=== PATIENT | male | born 1995 | race Caucasian/White ===

== ENCOUNTER → 2021-07-13 19:44 | Outpatient (CLI) | payer BC, SELFPAY | PROVIDERS: Visit Provider Nurse Practitioner Family | DX: Z20.822 Contact with and (suspected) exposure to COVID-19 (principal); U07.1 COVID-19 | CPT/HCPCS: U0003 ==

== ENCOUNTER 2021-07-23 16:16 | Emergency (ER) | payer BC, SELFPAY ==
[2021-07-23 17:10] VITALS: BP 128/73; PULSE 65; RESP 24; TEMP 36.7; O2SAT 99; BMI 29.4
[2021-07-23 17:25] VITALS: BP 128/73; PULSE 65; RESP 24; TEMP 36.7; O2SAT 99
--- NOTE | 2021-07-23 17:49 | HMH.EDUTC ---
[facility] [place] Dis[place] Clinical Impression: Encounter for laboratory testing for COVID-19 virus Disposition: Home, Self-Care Condition on Discharge: Good Instructions: DI for COVID-19 (Suspected or Confirmed ), Preventing the Spread of Coronavirus Discharge Instructions Additional Instructions: *Monitor Temp, Over the counter Motrin or Tylenol as directed/as needed Tylenol every 4 hours and Motrin every 6 hours (as long as your family doctor has told you that you can take it) for fever or pain. and straight to ER if unable to lower temp less than 101.0 after medication given Follow up IMMEDIATELY for new or worsening symptoms or no Noticeable improvement over the next 48-72 hours. 911 for difficulty breathing or swallowing You were tested for today for COVID19 your test result should be back in the next 24-48 hours, You was given written instructions for [facility] portal you can see your results there when they come back you may check it often to see if they are done You was given a handout with instructions for Self Quarantine and Self isolation for while you wait on test results and what to do if they are positive If you are positive the Health Dept will be contacting you also Make sure to take your Vitamins Vit. C Vit D and Zinc if you can take them Referrals: Provider,Referral, [Primary Care Provider] - As needed Time of Disposition: 17:50 Medical Decision Making - Zhou Inquiry Pt receiving controlled substance: No Zhou was queried for this patient: No Vital Signs: 07/23/21 17:10 07/23/21 17:25 Temperature 98.1 F 98.1 F Temperature Source Oral Pulse Rate 65 Pulse Rate [Right Brachial] 65 Respiratory Rate 24 24 Blood Pressure 128/73 Blood Pressure [Right Arm] 128/73 Blood Pressure Mean [Right Arm] 91 Blood Pressure Source [Right Arm] Automatic Cuff Blood Pressure Position [Right Arm] Sitting 02 Sat by Pulse Oximetry 99 Oxygen Delivery Method Room Air Orders (Tests/Meds): ORDERS Category Date Time Status Covid-19 Nasal PCR ([facility]) Routine Lab 07/23/21 17:18 Received [facility] [place] HPI - General Stated complaint: Covid test Time Seen by Provider: 07/23/21 17:49 Mode of Arrival: Ambulatory Source of Information: Patient Limitations: No Limitations Description of Symptoms (Recalled from Triage Doc. by RN): COVID TEST. PREVIOUSLY TESTED POSITIVE, NEEDS NEGATIVE TEST TO RETURN TO WORK HEENT Symptoms (Recalled from RN notes): No Resp Symptoms (Recalled from RN notes): No Skin Symptoms (Recalled from RN notes): No MS Symptoms (Recalled from RN notes): No Functional Status (Recalled from RN notes): WNL - History of Present Illness Provider Complaint: Patient states that he was positive for COVID on 07/13 State that work told him he needed to come back in and get tested again before he can return to work and he was hoping for a neg test so he can go back - Related Data Home Medications Medication Instructions Recorded Confirmed No Known Home Medications 07/13/21 07/13/21 Allergies Allergy/AdvReac Type Severity Reaction Status Date / Time No Known Allergies Allergy Verified 07/13/21 17:20 - Worker's Comp Is this a Worker's Comp case?: No [facility] History - Hepatitis A Screen Drug use history?: No High risk sexual behaviors?: No History of sexually transmitted infection?: No Currently employed?: No Childcare worker?: No Do you have indoor plumbing?: Yes Do you have electricity?: Yes Attestation statement:: This patient has been screened for Hepatitis A risk factors. I have reviewed the patient's past medical history: Yes Other Surgeries: Yes: No Previous Surgery - Social History Smoking Status: Never smoker Alcohol Intake: current Alcohol Intake Frequency:: holidays/special occasions only Occupational Status: employed Family Hx:: Non-contributory ROS Obtained: Yes All systems reviewed & no additional complaints, Yes Systems reviewed as appropriate & no additional comp
== END 2021-07-23 17:50 | disposition home or self-care (01) ==
PROVIDERS: Emergency Provider Nurse Practitioner
DX: U07.1 COVID-19 (principal)
CPT/HCPCS: 99202; G0463; U0003

== ENCOUNTER 2022-06-04 16:09 | Emergency (ER) | payer SELFPAY ==
[2022-06-04 16:25] VITALS: BP 133/78; PULSE 66; RESP 18; TEMP 36.9; O2SAT 98; BMI 33.2
[2022-06-04 16:42] VITALS: BP 133/78; PULSE 66; RESP 18; TEMP 36.9; O2SAT 98
--- NOTE | 2022-06-04 16:48 | HMH.EDUTC ---
[facility] – [place] Disposition Clinical Impression: Exposure to COVID-19 virus Disposition: Home, Self-Care Condition on Discharge: Good Instructions: DI for COVID-19 (Suspected or Confirmed ), Preventing the Spread of Coronavirus Discharge Instructions Additional Instructions: Drink plenty of fluids. Follow up with your regular doctor. GO TO THE ER FOR ANY WORSENING SYMPTOMS Quarantine until you know the results of your covid-19 test. Notify your school or workplace of your results and follow their instructions regarding return to work/school. Referrals: Provider,Referral, [Primary Care Provider] - Time of Disposition: 17:03 Medical Decision Making - Medical Records Medical records reviewed: No: I reviewed the patient's medical records. - Zhou Inquiry Pt receiving controlled substance: No Vital Signs: 06/04/22 16:25 06/04/22 16:42 Temperature 98.4 F 98.4 F Temperature Source Oral Pulse Rate 66 Pulse Rate [Right Brachial] 66 Respiratory Rate 18 18 Blood Pressure 133/78 Blood Pressure [Right Arm] 133/78 Blood Pressure Mean [Right Arm] 96 Blood Pressure Source [Right Arm] Automatic Cuff Blood Pressure Position [Right Arm] Sitting 02 Sat by Pulse Oximetry 98 Oxygen Delivery Method Room Air Orders (Tests/Meds): ORDERS Category Date Time Status Covid-19 Nasal PCR ([facility]) Routine Lab 06/04/22 16:26 Received [facility] – [place] HPI - General Stated complaint: covid test Time Seen by Provider: 06/04/22 16:48 Mode of Arrival: Ambulatory Source of Information: Patient Limitations: No Limitations Description of Symptoms (Recalled from Triage Doc. by RN): PATIENT NEEDING COVID TEST TO RETURN TO WORK HEENT Symptoms (Recalled from RN notes): No Resp Symptoms (Recalled from RN notes): No Skin Symptoms (Recalled from RN notes): No MS Symptoms (Recalled from RN notes): No Functional Status (Recalled from RN notes): WNL - History of Present Illness Provider Complaint: His family has been positive for covid-19. He denies any symptoms or having it himself, but he needs a test before he can return to work. - Related Data Home Medications Medication Instructions Recorded Confirmed No Known Home Medications 07/13/21 07/13/21 Allergies Allergy/AdvReac Type Severity Reaction Status Date / Time No Known Allergies Allergy Verified 07/13/21 17:20 - Worker's Comp Is this a Worker's Comp case?: No [facility] History - Hepatitis A Screen Attestation statement:: This patient has been screened for Hepatitis A risk factors. I have reviewed the patient's past medical history: Yes Other Surgeries: Yes: No Previous Surgery - Social History Smoking Status: Never smoker Alcohol Intake: current Alcohol Intake Frequency:: holidays/special occasions only Occupational Status: employed Family Hx:: Non-contributory ROS Obtained: Yes All systems reviewed & no additional complaints - Constitutional Constitutional: Reports system reviewed and no additional complaints, except as docu - Eyes Eyes: Reports system reviewed and no additional complaints, except as docu - ENT Ears, Nose, Mouth, and Throat: Reports system reviewed and no additional complaints, except as docu - Cardiovascular Cardiovascular: Reports system reviewed and no additional complaints, except as docu - Respiratory Respiratory: Reports system reviewed and no additional complaints, except as docu Physical Exam - General General appearance: alert, in no apparent distress - Head Head exam: atraumatic, normocephalic, normal inspection - Eye Eye exam: Present: normal appearance, PERRL, EOMI - ENT ENT exam: Present: normal exam, normal oropharynx, mucous membranes moist, TM's normal bilaterally, normal external ear exam - Neck Neck exam: Present: normal inspection, full ROM, trachea midline. Absent: meningismus, lymphadenopathy - Chest Chest inspection: Present: normal inspection, symmetric chest wall rise. Absen
== END 2022-06-04 16:50 | disposition home or self-care (01) ==
PROVIDERS: Emergency Provider Nurse Practitioner Family
DX: Z20.822 Contact with and (suspected) exposure to COVID-19 (principal)
CPT/HCPCS: 99212; C9803; G0463; U0003; U0005

== ENCOUNTER 2022-06-12 13:22 | Emergency (ER) | payer BC, SELFPAY ==
[2022-06-12 14:00] VITALS: BP 134/79; PULSE 64; RESP 18; TEMP 36.6; O2SAT 98; BMI 28.8
--- NOTE | 2022-06-12 14:43 | HMH.EDUTC ---
[facility] [place]ression: Sinusitis Qualifiers: Sinusitis location: unspecified location Chronicity: unspecified Qualified Code(s): J32.9 - Chronic sinusitis, unspecified Disposition: Home, Self-Care Condition on Discharge: Good Instructions: Sinusitis, DI for Sinusitis, Azithromycin Additional Instructions: *Monitor Temp, Over the counter Motrin or Tylenol as directed/as needed Tylenol every 4 hours and Motrin every 6 hours (as long as your family doctor has told you that you can take it) for fever or pain. and straight to ER if unable to lower temp less than 101.0 after medication givens *Warm fluids like tea with honey may help to soothe the throat and open nasal congestion *Sleep elevated *Humidifier/Vaporizer *Flonase 2 sprays in each nostril daily but be aware that it may take 2-3 days before you notice improvement Take medication as prescribed Follow up IMMEDIATELY for new or worsening symptoms or no Noticeable improvement over the next 48-72 hours. 911 for difficulty breathing or swallowing Prescriptions: Fluticasone Propionate [Flonase 50mcg nasal spray 16gm] 1 spr NS DAILY #1 each Transmission Status: Pending to [facility] methylPREDNISolone [Medrol 4mg tab] 4 mg PO DIRECTED #21 tab Transmission Status: Pending to [facility] Azithromycin [Z-Handy 250mg Tab] 250 mg PO DIRECTED #6 tab Transmission Status: Pending to [facility] Referrals: Provider,Referral, MD [Primary Care Provider] - As needed Forms: Work/School Release Time of Disposition: 14:51 Medical Decision Making - Zhou Inquiry Pt receiving controlled substance: No Zhou was queried for this patient: No Vital Signs: 06/12/22 14:00 Temperature 97.8 F Temperature Source Oral Pulse Rate [Right Brachial] 64 Respiratory Rate 18 Blood Pressure [Right Arm] 134/79 Blood Pressure Mean [Right Arm] 97 Blood Pressure Source [Right Arm] Automatic Cuff Blood Pressure Position [Right Arm] Sitting 02 Sat by Pulse Oximetry 98 Oxygen Delivery Method Room Air [facility] [place] - General Stated complaint: sinus pressure/drainage, sore throat Time Seen by Provider: 06/12/22 14:43 Mode of Arrival: Ambulatory Source of Information: Patient Limitations: No Limitations Description of Symptoms (Recalled from Triage Doc. by RN): PATIENT C/O SINUS PRESSURE AND DRAINAGE X 3 DAYS HEENT Symptoms (Recalled from RN notes): Yes Resp Symptoms (Recalled from RN notes): No Skin Symptoms (Recalled from RN notes): No MS Symptoms (Recalled from RN notes): No Functional Status (Recalled from RN notes): WNL - History of Present Illness Provider Complaint: Patient states that he gets a bad sinus infection about this time every year States that he has been having sinus pain and pressure on and off for over a week that has got worse in the last 3 days State that today he had a little sinus headache so he came in to get checked - Related Data Previous Rx's Medication Instructions Recorded Azithromycin [Z-Handy 250mg Tab] 250 mg PO DIRECTED #6 tab 06/12/22 Fluticasone Propionate [Flonase 1 spr NS DAILY #1 each 06/12/22 50mcg nasal spray 16gm] methylPREDNISolone [Medrol 4mg 4 mg PO DIRECTED #21 tab 06/12/22 tab] Allergies Allergy/AdvReac Type Severity Reaction Status Date / Time No Known Allergies Allergy Verified 07/13/21 17:20 - Worker's Comp Is this a Worker's Comp case?: No [facility] History - Hepatitis A Screen Attestation statement:: This patient has been screened for Hepatitis A risk factors. I have reviewed the patient's past medical history: Yes Other Surgeries: Yes: No Previous Surgery - Social History Smoking Status: Never smoker Alcohol Intake: never Alcohol Intake Frequency:: holidays/special occasions only Occupational Status: other Family Hx:: Non-contributory ROS Obtained: Yes All systems reviewed & no additional complaints, Yes Systems reviewed as appropriate & no additio
[2022-06-12 14:54] VITALS: BP 134/79; PULSE 64; RESP 18; TEMP 36.6; O2SAT 98
== END 2022-06-12 14:57 | disposition home or self-care (01) ==
PROVIDERS: Emergency Provider Nurse Practitioner
DX: J32.9 Chronic sinusitis, unspecified (principal)
CPT/HCPCS: 99212; G0463

== ENCOUNTER 2022-06-13 23:31 | Emergency (ER) | payer SELFPAY ==
[2022-06-13 23:46] VITALS: BP 145/85; RESP 16; TEMP 36.8; O2SAT 99; BMI 29.1
[2022-06-13 23:52] VITALS: BP 103/80; PULSE 73; RESP 16; O2SAT 98
[2022-06-14 00:06] LABS: Chloride 108 mmol/L (98-107)
[2022-06-14 00:07] LABS: Potassium 3.7 mmoL/L (3.5-5.1); Sodium 140 mmol/L (136-145)
[2022-06-14 00:09] LABS: Alanine Aminotransferase 68 U/L (12-78); Anion Gap 10.7 mEq/L (5-15); Aspartate Amino Transferase 47 U/L (17-59); Blood Urea Nitrogen 11 mg/dl (9-20); Carbon Dioxide 25 mmol/L (22.0-30.0); Creatinine Clearance Estimated 196 mL/min (50-200); Estimated Glomerular Filt Rate 119 ml/min (>60); GFR (African American) 144 ML/MIN (>60)
[2022-06-14 00:10] LABS: Alkaline Phosphatase 70 U/L (38-126); Bilirubin,Total 0.4 mg/dl (0.2-1.3); Calcium 9.5 mg/dl (8.4-10.2); Glucose 128 mg/dl (74-100)
[2022-06-14 00:11] LABS: Albumin Level 4.4 g/dl (3.5-5.0); Albumin/Globulin Ratio 1.7 (1.1-1.8); Globulin 2.6 g/dL (1.3-3.2)
[2022-06-14 00:12] LABS: Basophils # 0.1 K/mm3 (0-0.2); Basophils % 0.6 % (0.1-2.0); Eosinophils # 0.3 K/mm3 (0.0-0.4); Eosinophils % 2.4 % (0.1-12.0); Hemoglobin 14.5 g/dL (14.1-18.0); Lymphocytes # 3.8 K/mm3 (0.7-4.5); Mean Corpuscular HGB Conc 34.5 g/dL (31.8-35.4); Mean Corpuscular Hemoglobin 28.5 pg (27.0-31.2); Mean Corpuscular Volume 82.7 fl (80-94); Mean Platelet Volume 7.3 fl (7.4-10.4); Monocytes # 0.6 K/mm3 (0.1-1.0); Monocytes % 5.1 % (1.7-9.3); Neutrophils # 6.5 K/mm3 (1.8-7.8); Platelet Count 325 K/mm3 (142-424); Red Blood Count 5.08 M/mm3 (4.60-6.20); Red Cell Distribution Width 12.5 % (11.5-17.5); White Blood Count 11.2 K/mm3 (4.8-10.8)
[2022-06-14 00:15] LABS: C-Reactive Protein 0.7 mg/L (0-4)
--- NOTE | 2022-06-14 00:16 | PC.NURSE ---
ALERT, ORIENTED, SKIN WARM AND DRY. RESP EVEN AND LABORED. PATIENT PLAYING ON PHONE. FAMILY MEMBER AT BEDSIDE. C/O BEING DROWSY.
--- NOTE | 2022-06-14 00:22 | HMH.EDALLER ---
ED Disposition Clinical Impression: Adverse effects of medication Qualifiers: Encounter type: initial encounter Qualified Code(s): T50.905A - Adverse effect of unspecified drugs, medicaments and biological substances, initial encounter Disposition: Home, Self-Care Condition on Discharge: Good Instructions: DI for Adverse Drug Reaction -- Allergic Additional Instructions: see pcp and dr mills for follow up Referrals: Provider,Referral, [Primary Care Provider] - Devonte Mills [Referring] - - Critical Care Critical Care Time: No Attestation: On 06/13/22, the high probability of a clinically significant, sudden or life threatening deterioration of the following system(s) required my full and direct attention, intervention and personal management. The time I documented below is in addition to time spent performing reported procedures but includes the following listed in this critical care notation. Medical Decision Making - Medical Records Medical records reviewed: Yes: I reviewed the patient's medical records. - Zhou Inquiry Pt receiving controlled substance: No Vital Signs: 06/13/22 23:46 06/13/22 23:52 Temperature 98.2 F Temperature Source Oral Pulse Rate 73 Respiratory Rate 16 16 Blood Pressure 103/80 L Blood Pressure [Right Arm] 145/85 H Blood Pressure Mean [Right Arm] 105 Blood Pressure Source Automatic Cuff Blood Pressure Source [Right Arm] Manual Cuff/ Doppler Blood Pressure Position Sitting Blood Pressure Position [Right Arm] Sitting 02 Sat by Pulse Oximetry 99 98 Oxygen Delivery Method Room Air Room Air - Lab Data Lab results reviewed: Yes: I reviewed the patient's lab results. Lab Results 06/13/22 23:15: WBC 11.2 H, RBC 5.08, Hgb 14.5, Hct 42.0, MCV 82.7, MCH 28.5, MCHC 34.5, RDW 12.5, Plt Count 325, MPV 7.3 L, Neut % (Auto) 58.0, Lymph % (Auto) 34.0, [place] % (Auto) 5.1, Eos % (Auto) 2.4, Baso % (Auto) 0.6, Neut # (Auto) 6.5, Lymph # (Auto) 3.8, [place] # (Auto) 0.6, Eos # (Auto) 0.3, Baso # (Auto) 0.1 06/13/22 23:15: Sodium 140, Potassium 3.7, Chloride 108 H, Carbon Dioxide 25, Anion Gap 10.7, BUN 11, Creatinine 0.80, Estimated Creat Clear 196, Estimated GFR 119, Est GFR ( Amer) 144, Glucose 128 H, Calcium 9.5, Total Bilirubin 0.4, AST 47, ALT 68, Alkaline Phosphatase 70, C-Reactive Protein 0.7, Total Protein 7.0, Albumin 4.4, Globulin 2.6, Albumin/Globulin Ratio 1.7 Result diagrams: 06/13/22 23:15 06/13/22 23:15 Orders (Tests/Meds): ED MEDICATIONS Generic Name Dose Route Start Last Admin Trade Name Freq PRN Reason Stop Dose Admin Sodium Chloride 1,000 mls @ 999 mls/hr 06/13/22 23:45 06/13/22 23:58 Sod Chlor 0.9% 1000ml Bag IV 06/14/22 00:45 999 mls/hr .Q1H1M DEJA Administration ORDERS Category Date Time Status Complete Blood Count Auto Diff Stat Lab 06/13/22 23:15 Results Diarrhea 6-11 Panel, Cdiff PCR Stat Lab 06/13/22 23:55 Ordered Erythrocyte Sedimentation Rate Stat Lab 06/13/22 23:15 Results Procalcitonin Stat Lab 06/13/22 23:15 Received UA [Urinalysis and Microscopic] Stat Lab 06/13/22 23:57 Ordered Medical Decision Narrative: had unusual reaction to med willhold meds at this time and refer to dr mills Allergic React/Insect Bite HPI - General Chief complaint: Nausea/Vomiting/Diarrhea Stated complaint: possible reaction to medication;tremors;slurred sp Time Seen by Provider: 06/14/22 00:22 Mode of Arrival - ED Triage: Ambulatory Source of Information: Patient, Medical Record Limitations: No Limitations - History of Present Illness HPI narrative: about 1 hr after taking first dose of z pk had acute sx - no def hives and no throat sx - has allergies MD complaint: allergic reaction Onset (ago): hour(s) Exposure: medication Symptoms: dizziness, other (mm spasm ) Treatment prior to arrival: none Allergies/Adverse Reactions: Allergies Allergy/AdvReac Type Severity Reaction Status Date / Time No Known Allergies Al
[2022-06-14 00:39] VITALS: BP 118/62; PULSE 87; RESP 19; TEMP 36.8; O2SAT 98
[2022-06-14 00:47] LABS: Erythrocyte Sedimentation Rate 6 mm/hr (0-15)
[2022-06-14 03:09] LABS: Procalcitonin 0.039 ng/mL (0.0-2.0)
== END 2022-06-14 00:47 | disposition home or self-care (01) ==
PROVIDERS: Emergency Provider Emergency Medicine
DX: R47.81 Slurred speech (principal); T36.95XA Adverse effect of unspecified systemic antibiotic, initial encounter; R11.2 Nausea with vomiting, unspecified; R19.7 Diarrhea, unspecified; R25.1 Tremor, unspecified; Z79.51 Long term (current) use of inhaled steroids; Z79.52 Long term (current) use of systemic steroids
CPT/HCPCS: 80053; 84145; 85025; 85651; 86140; 96360; 99284

== ENCOUNTER 2023-05-08 21:22 | Emergency (ER) | payer OTHER, SELFPAY ==
[2023-05-08 21:23] VITALS: BP 152/82; PULSE 66; RESP 18; TEMP 36.8; O2SAT 98; BMI 31.1
[2023-05-08 21:30] VITALS: BP 147/79; PULSE 60; O2SAT 96
--- NOTE | 2023-05-08 21:47 | HMH.EDDENT ---
Discharge Plan Disposition Patient Disposition: Home, Self-Care Prescriptions Prescriptions: New cephalexin [cephalexin] 500 mg capsule 500 mg PO TID Qty: 30 0RF ketorolac 10 mg tablet 10 mg PO Q8H PRN (Reason: pain) 3 Days Qty: 10 0RF Referrals Follow up/Referrals: Provider,Referral, [Primary Care Provider] - See instructions Clinical Impressions Clinical Impression: Dental infection, Pain, dental Instructions Patient Instructions: DI for Dental Pain Discharge ED Provider: Narayan (ED)[facility] HPI General Chief complaint: Dental/Oral Stated complaint: right side jaw pain Time Seen by Provider: 05/08/23 21:30 Mode of Arrival: Ambulatory Source of Information: Patient and Medical Record Limitations: No Limitations Description of Symptoms (Recalled from ER Triage Doc. by RN): 27 M presents with a right lower jaw dental infection. He has been dealing with this for 6 months. He reports severe pain, and now swelling. Airway intact. Denies fever or chills. History of Present Illness HPI Narrative: pt with rt sided dental pain and infection - pt has had same issues in past - MD Complaint: tooth pain Onset (ago): day(s) Duration: constant Severity: moderate Context: history of dental caries Related Data Previous Rx's Medication Instructions Recorded cephalexin 500 mg capsule 500 mg PO TID #30 caps 05/08/23 ketorolac 10 mg tablet 10 mg PO Q8H PRN pain 3 days #10 05/08/23 tabs Allergies Allergy/AdvReac Type Severity Reaction Status Date / Time No Known Allergies Allergy Verified 12/01/22 10:59 [facility] Disclaimer: The information contained in this section may have been updated after the patient was seen, as this information can be updated by other users. Medical History (Updated 05/08/23 @ 21:54 by Trevon Busch (ED)MD) No significant past medical history Surgical History (Updated 05/08/23 @ 21:29 by Rk García RN) No history of previous surgery Family History (Updated 05/08/23 @ 21:29 by Rk García RN) Other No significant family history Social History Smoking Status: Never smoker alcohol intake: never current occupational status: other Travel in the last 8 weeks: None ROS Obtained: Yes All systems reviewed & no additional complaints except as documented Physical Exam General General appearance: alert Head Head exam: normocephalic Eye Eye exam: Present PERRL and EOMI ENT ENT exam: Present mucous membranes moist Expanded ENT Exam Teeth exam: Present dental caries and gingival swelling Teeth numbered Image: 1. Neck Neck exam: Present trachea midline; Absent meningismus Respiratory Respiratory exam: Absent respiratory distress Cardiovascular Cardiovascular exam: Present regular rate Abdominal Exam Abdominal exam: Present soft Extremities Exam Extremities exam: Present full ROM Neurological Exam Neurological exam: Present alert, oriented X3 and CN II-XII intact; Absent motor sensory deficit Psychiatric Psychiatric exam: Present normal affect Skin Skin exam: Absent rash Lymphatic Lymphatic Findings: other (rt submandibular ) Medical Decision Making Medical Records Medical records reviewed: Yes I reviewed the patient's medical records. Zhou Inquiry Pt receiving controlled substance: No Vital Signs: 05/08/23 21:23 05/08/23 21:30 Temperature 98.2 F Temperature Source Oral Pulse Rate 60 Pulse Rate [Left] 66 Respiratory Rate 18 Blood Pressure 147/79 H Blood Pressure [Right Arm] 152/82 H Blood Pressure Mean [Right Arm] 105 Blood Pressure Source [Right Arm] Automatic Cuff Blood Pressure Position [Right Arm] Sitting 02 Sat by Pulse Oximetry 98 96 Oxygen Delivery Method Room Air Orders (Tests/Meds): ED MEDICATIONS Discontinued Medications Generic Name Dose Route Start Last Admin Trade Name Freq PRN Reason Stop Dose Admin
[2023-05-08 22:07] VITALS: BP 140/72; PULSE 68; RESP 18; TEMP 36.8; O2SAT 98
== END 2023-05-08 22:08 | disposition home or self-care (01) ==
PROVIDERS: Emergency Provider Emergency Medicine
DX: R68.84 Jaw pain (principal); R22.0 Localized swelling, mass and lump, head; K04.7 Periapical abscess without sinus
CPT/HCPCS: 96372; 99283; 99284

== ENCOUNTER 2023-06-12 18:49 | Emergency (ER) | payer OTHER, SELFPAY ==
[2023-06-12 18:49] VITALS: BP 142/79; PULSE 60; RESP 18; TEMP 36.7; O2SAT 97; BMI 32.5
--- NOTE | 2023-06-12 19:16 | EXP.UTC ---
Discharge Plan Disposition Patient Disposition: Home, Self-Care Condition: Good Prescriptions Prescriptions: New ibuprofen [IBU] 800 mg tablet 800 mg PO Q8HP PRN (Reason: Moderate Pain) Qty: 30 0RF amoxicillin-pot clavulanate 875-125 mg Tablet 1 tab PO Q12H Qty: 20 0RF No Action cephalexin [cephalexin] 500 mg capsule 500 mg PO TID Qty: 30 0RF ketorolac 10 mg tablet 10 mg PO Q8H PRN (Reason: pain) 3 Days Qty: 10 0RF Referrals Follow up/Referrals: Provider,Referral, MD [Primary Care Provider] - See instructions Activity Restrictions/Add. Instructions Additional Instructions/Restrictions: Take the medications as directed. Follow up with a dentist as soon as you can get in. Follow up with your regular doctor. GO TO THE ER FOR ANY WORSENING SYMPTOMS Clinical Impressions Clinical Impression: Dental abscess Instructions Patient Instructions: Tooth Abscess, DI for Tooth Abscess, Ceftriaxone Injection Discharge ED Provider: Elbert Urbina [facility] General Stated complaint: dental pain Mode of Arrival: Ambulatory Source of Information: Patient Limitations: No Limitations Time Seen by Provider: 06/12/23 19:12 Description of Symptoms (Recalled from Triage Doc. by RN): Patient reports right lower tooth pain for 7-8 days. States he thinks it may be infected. HEENT Symptoms (Recalled from RN notes): Yes Resp Symptoms (Recalled from RN notes): No Skin Symptoms (Recalled from RN notes): No MS Symptoms (Recalled from RN notes): No Functional Status (Recalled from RN notes): wnl History of Present Illness Provider Complaint: He states that for the past 3 days he has had right upper jaw dental pain. He has a decayed tooth in that area that has abscessed before. He has an appointment with his dentist coming up, but he is here to get antibiotics. Related Data Previous Rx's Medication Instructions Recorded cephalexin 500 mg capsule 500 mg PO TID #30 caps 05/08/23 ketorolac 10 mg tablet 10 mg PO Q8H PRN pain 3 days #10 05/08/23 tabs amoxicillin 875 mg-potassium 1 tab PO Q12H #20 tabs 06/12/23 clavulanate 125 mg tablet ibuprofen 800 mg tablet (IBU) 800 mg PO Q8HP PRN Moderate Pain 06/12/23 #30 tabs Allergies Allergy/AdvReac Type Severity Reaction Status Date / Time No Known Allergies Allergy Verified 12/01/22 10:59 Worker's Comp Is this a Worker's Comp case?: No [facility] Disclaimer: The information contained in this section may have been updated after the patient was seen, as this information can be updated by other users. Medical History No significant past medical history Surgical History No history of previous surgery Family History Other No significant family history Social History Smoking Status: Never smoker alcohol intake: never current occupational status: other Travel in the last 8 weeks: None ROS Obtained: Yes All systems reviewed & no additional complaints except as documented Constitutional Constitutional: Denies chills and Denies fever(s) Eyes Eyes: Denies eye discharge ENT Ears, Nose, Mouth, and Throat: Denies dizziness, Denies otalgia and Denies sore throat Cardiovascular Cardiovascular: Denies chest pain Respiratory Respiratory: Denies shortness of breath, Denies chest congestion, Denies cough, Denies stridor and Denies wheezing Gastrointestinal Gastrointestingal: Denies nausea or vomiting Musculoskeletal Musculoskeletal: Reports system reviewed and no additional complaints, except as documented and Denies arthralgias Integumentary/Breasts Skin/Breast: Denies rash Neurologic Neurologic: Denies dizziness and Denies paresthesias Allergic/Immunologic Allergic/Immunologic: Denies wheezing Physical Exam General General appearance:
[2023-06-12 19:56] VITALS: BP 142/79; PULSE 60; RESP 18; TEMP 36.7; O2SAT 97
== END 2023-06-12 19:57 | disposition home or self-care (01) ==
PROVIDERS: Emergency Provider Nurse Practitioner Family
DX: K04.7 Periapical abscess without sinus (principal)
CPT/HCPCS: 96372; 99212; 99214; G0463; J0696

== ENCOUNTER 2023-11-05 22:10 | Emergency (ER) | payer OTHER, SELFPAY ==
[2023-11-05 22:39] VITALS: BP 117/70; PULSE 89; RESP 15; TEMP 36.7; O2SAT 96; BMI 29.8
--- NOTE | 2023-11-05 23:08 | HMH.EDGENADL ---
Discharge Plan Disposition Patient Disposition: Home, Self-Care Prescriptions Prescriptions: New amoxicillin-pot clavulanate 875-125 mg tablet 1 tab PO BID 7 Days Qty: 14 0RF No Action cephalexin [cephalexin] 500 mg capsule 500 mg PO TID Qty: 30 0RF ketorolac 10 mg tablet 10 mg PO Q8H PRN (Reason: pain) 3 Days Qty: 10 0RF ibuprofen [IBU] 800 mg tablet 800 mg PO Q8HP PRN (Reason: Moderate Pain) Qty: 30 0RF amoxicillin-pot clavulanate 875-125 mg Tablet 1 tab PO Q12H Qty: 20 0RF Referrals Follow up/Referrals: Provider,Referral, MD [Primary Care Provider] - See instructions Activity Restrictions/Add. Instructions Additional Instructions/Restrictions: Please follow-up with a dentist as soon as possible. Please return to the emergency department if you develop any new or worsening symptoms or become concerned for your health. Please take antibiotics as prescribed. Clinical Impressions Clinical Impression: Dental infection Discharge ED Provider: Felix Mcclure General Adult HPI General Chief complaint: Dental/Oral Stated complaint: dental pain Time Seen by Provider: 11/05/23 22:31 Mode of Arrival: Family Vehicle Source of Information: Patient Limitations: No Limitations Description of Symptoms (Recalled from ER Triage Doc. by RN): 28 yo male presents with a CC of right upper jaw pain. States he has a wisdom tooth that is bothering him and when the pain started around 1800, he took ibuprofen 800mg and had no relief. History of Present Illness HPI narrative: 28-year-old male, history of previous dental infection presents with right maxillary molar tooth pain. Reports symptoms been ongoing for at least the last day. He reports that he had similar pain in another tooth and had to be taken out. Denies any fevers at home. Related Data Previous Rx's Medication Instructions Recorded cephalexin 500 mg capsule 500 mg PO TID #30 caps 05/08/23 ketorolac 10 mg tablet 10 mg PO Q8H PRN pain 3 days #10 05/08/23 tabs amoxicillin 875 mg-potassium 1 tab PO Q12H #20 tabs 06/12/23 clavulanate 125 mg tablet ibuprofen 800 mg tablet (IBU) 800 mg PO Q8HP PRN Moderate Pain 06/12/23 #30 tabs amoxicillin 875 mg-potassium 1 tab PO BID 7 days #14 tabs 11/05/23 clavulanate 125 mg tablet Allergies Allergy/AdvReac Type Severity Reaction Status Date / Time No Known Allergies Allergy Verified 12/01/22 10:59 [facility] Disclaimer: The information contained in this section may have been updated after the patient was seen, as this information can be updated by other users. Medical History No significant past medical history Surgical History No history of previous surgery Family History Other No significant family history Social History Smoking Status: Unknown if ever smoked alcohol intake: never current occupational status: other Travel in the last 8 weeks: None ROS Obtained: Yes All systems reviewed & no additional complaints except as documented Physical Exam General General appearance: alert and in no apparent distress Head Head exam: atraumatic and normocephalic Eye Eye exam: Present normal appearance, PERRL and EOMI ENT ENT exam: Present normal oropharynx, normal external ear exam and other (Right posterior most maxillary molar is black, mild surrounding erythema, no fluctuance noted) Neck Neck exam: Present normal inspection and full ROM Chest Chest inspection: Present normal inspection and symmetric chest wall rise; Absent tenderness Respiratory Respiratory exam: Present normal lung sounds bilaterally; Absent respiratory distress Cardiovascular Cardiovascular exam: Present regular rate and normal rhythm Abdominal Exam Abdominal exam: Present soft; Absent distention, te
[2023-11-05 23:20] VITALS: BP 129/68; PULSE 86; RESP 16; TEMP 36.8; O2SAT 97
== END 2023-11-05 23:28 | disposition home or self-care (01) ==
PROVIDERS: Emergency Provider Emergency Medicine
DX: R68.84 Jaw pain (principal)
CPT/HCPCS: 99283

== ENCOUNTER 2024-01-10 11:09 | Emergency (ER) | payer OTHER, SELFPAY ==
[2024-01-10 11:11] VITALS: BP 153/90; PULSE 80; RESP 18; TEMP 37.1; O2SAT 97; BMI 29.8
[2024-01-10 11:31] VITALS: BP 153/77; PULSE 78; O2SAT 98
[2024-01-10 12:00] VITALS: BP 142/87; PULSE 61; O2SAT 96
[2024-01-10] MEDS: BUTALB/ACETAMINOPHEN/CAFFEINE 50MG/325MG/40MG TAB 2 EACH PO (12:02)
--- NOTE | 2024-01-10 12:04 | ED_ITS ---
Discharge Plan Disposition Patient Disposition: Home, Self-Care Condition: Good Prescriptions Prescriptions: No Action cephalexin [cephalexin] 500 mg capsule 500 mg PO TID Qty: 30 0RF ketorolac 10 mg tablet 10 mg PO Q8H PRN (Reason: pain) 3 Days Qty: 10 0RF ibuprofen [IBU] 800 mg tablet 800 mg PO Q8HP PRN (Reason: Moderate Pain) Qty: 30 0RF amoxicillin-pot clavulanate 875-125 mg Tablet 1 tab PO Q12H Qty: 20 0RF amoxicillin-pot clavulanate 875-125 mg tablet 1 tab PO BID 7 Days Qty: 14 0RF Referrals Follow up/Referrals: Isaiah Corrales DO [Staff Physician] - See instructions Provider,Referral, [Primary Care Provider] - See instructions Activity Restrictions/Add. Instructions Additional Instructions/Restrictions: You were evaluated in the emergency department today. Please follow-up closely with your primary care provider. We are providing you with information for Dr. Corrales if you do not have one. We feel that your symptoms were most likely related to a migraine. If your symptoms recur or you have any worsening vision loss, new numbness or tingling, new weakness, or other concerns, please return to the emergency department. 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 by RN): Patient reports he was sitting at work and noticed vision changes in right eye. States he started by seeing a white light in his right eye and noticed his peripheral vision was fuzzy. Patient denies any pain or history of these episodes before. History of Present Illness HPI narrative: This patient is a 28-year-old male who denies significant past medical history presenting to the emergency department for evaluation with concern for visual aura. Patient states that when he was sitting at work, he noticed a white spot in the center of his right eye. He states that the white light resolved, however he now sees a fuzzy white aura in his peripheral vision of his right eye. He is never spacing of this in the past. He also notes that he feels brain fog. He denies any history of migraines or other issues. He denies any facial droop, numbness, tingling, weakness, severe headache, or other concerns. No trauma. His symptoms are actually improving at this time. Related Data Previous Rx's Medication Instructions Recorded cephalexin 500 mg capsule 500 mg PO TID #30 caps 05/08/23 ketorolac 10 mg tablet 10 mg PO Q8H PRN pain 3 days #10 05/08/23 tabs amoxicillin 875 mg-potassium 1 tab PO Q12H #20 tabs 06/12/23 clavulanate 125 mg tablet ibuprofen 800 mg tablet (IBU) 800 mg PO Q8HP PRN Moderate Pain 06/12/23 #30 tabs amoxicillin 875 mg-potassium 1 tab PO BID 7 days #14 tabs 11/05/23 clavulanate 125 mg tablet Allergies Allergy/AdvReac Type Severity Reaction Status Date / Time No Known Allergies Allergy Verified 12/01/22 10:59 [facility] Disclaimer: The information contained in this section may have been updated after the patient was seen, as this information can be updated by other users. Medical History No significant past medical history Surgical History No history of previous surgery Family History Other No significant family history Social History Smoking Status: Never smoker alcohol intake: never current occupational status: other Travel in the last 8 weeks: None ROS Obtained: Yes All systems reviewed & no additional complaints except as documented Physical Exam General General appearance: alert and in no apparent distress Head Head exam: atraumatic and normocephalic Eye Eye exam: Present normal appearance, PERRL and EOMI; Absent scleral icterus, conjunctival redness, conjunctival injection, discharge, nystagmus, periorbital swelling or periorbital tenderness ENT ENT exam: Present normal exam, normal oropharynx, mucous membranes moist and normal external ear exam Neck Neck exam: Present normal inspection, full ROM and trachea midline; Absent tenderness Chest Chest inspection: Present normal inspection and symmetric chest wall rise; Absent tenderness Respiratory Respiratory exam: Present normal lung sounds bilaterally; Absent respiratory distress, wheezes, stridor or accessory muscle use Cardiovascular Cardiovascular exam: Present regular rate and normal rhythm Abdominal Exam Abdominal exam: Present soft; Absent distention, tenderness or guarding Extremities Exam Extremities exam: Present normal inspection, full ROM and normal capillary refill; Absent tenderness or edema Back Exam Back exam: Present normal inspection and full ROM; Absent tenderness Neurological Exam Neurological exam: Present alert, oriented X3, CN II-XII intact and normal gait; Absent motor sensory deficit Psychiatric Psychiatric exam: Present normal affect and normal mood Skin Skin exam: Present warm and dry Medical Decision Making Medical Records Medical records reviewed: Yes I reviewed the patient's medical records. Zhou Inquiry Pt receiving controlled substance: No Vital Signs: 01/10/24 11:11 01/10/24 11:31 01/10/24 12:00 Temperature 98.7 F Temperature Source Oral Pulse Rate 78 61 Pulse Rate [Right] 80 Respiratory Rate 18 Blood Pressure 153/77 H 142/87 H Blood Pressure [Right Arm] 153/90 H Blood Pressure Mean [Right Arm] 111 Blood Pressure Source [Right Arm] Automatic Cuff 02 Sat by Pulse Oximetry 97 98 96 Oxygen Delivery Method Room Air Room Air Room Air 01/10/24 12:53 Temperature 98.7 F Temperature Source Oral Pulse Rate 64 Pulse Rate [Right] Respiratory Rate 16 Blood Pressure 133/88 Blood Pressure [Right Arm] Blood Pressure Mean [Right Arm] Blood Pressure Source [Right Arm] 02 Sat by Pulse Oximetry Oxygen Delivery Method Lab Data Lab results reviewed: Yes I reviewed the patient's lab results. Orders (Tests/Meds): ED MEDICATIONS Discontinued Medications Generic Name Dose Route Start Last Admin Trade Name Freq PRN Reason Stop Dose Admin Acetaminophen/Butalbital/Caffeine 2 each 01/10/24 11:47 01/10/24 12:02 Butalb/Acetaminophen/Caffeine 50mg/325mg/40mg Tab PO 01/10/24 11:48 2 each ONCE ONE Administration ORDERS Category Date Time Status POC Glucose,Bedside Stat Lab 01/10/24 12:36 Ordered Medical Decision Narrative: In summary, this patient is a 28-year-old male presenting to the Emergency Department for evaluation of visual aura. Differential diagnoses considered include but are not limited to migraine with aura, intracranial mass/hemorrhage or other abnormality, CVA, other stroke mimic. Ruling out the most morbid conditions drove assessment. On exam, the patient is completely neurologically intact with a normal ocular exam. I had a discussion with the patient regarding obtaining a potential CT scan of the head without contrast to further evaluate, however given his reassuring neurologic exam and the explanation of symptoms, feel he likely has a migraine with aura. Patient states that he does not want to proceed with CT scan, as he does not feel that it is indicated either. He was given Fioricet. On reassessment, he is resting comfortably with no symptoms. He is feeling much better. He is neurologically intact. Given this, I do feel that he is appropriate for discharge with diagnosis of likely migraine with aura. He was given instructions for close patient follow-up, strict return precautions, and he was discharged in stable condition after all questions were answered Critical Care Critical Care Time Critical Care Time: No
[2024-01-10 12:53] VITALS: BP 133/88; PULSE 64; RESP 16; TEMP 37.1
== END 2024-01-10 12:56 | disposition home or self-care (01) ==
PROVIDERS: Emergency Provider Emergency Medicine
DX: G43.109 Migraine with aura, not intractable, without status migrainosus (principal)
CPT/HCPCS: 99283

== ENCOUNTER 2024-01-31 16:57 | Emergency (ER) | payer OTHER, SELFPAY ==
[2024-01-31 16:58] VITALS: BP 126/79; PULSE 75; RESP 18; TEMP 37; O2SAT 100; BMI 29.8
--- NOTE | 2024-01-31 17:07 | ED_ITS ---
<Statement entered by Erich Carson MD - 01/31/24 23:01> I was consulted by the KAMARI, and we discussed the complexity of the problems being addressed. I approved the treatment and management plan for this patient's care in the emergency department, thus performing a substantive portion of the medical decision making. Erich Carson MD, SANKET, FACEP Discharge Plan Disposition Patient Disposition: Home, Self-Care Condition: Serious Prescriptions Prescriptions: New hydrocodone-acetaminophen 5-325 mg tablet 1 tab PO Q6H PRN (Reason: pain) 3 Days Qty: 12 0RF No Action cephalexin [cephalexin] 500 mg capsule 500 mg PO TID Qty: 30 0RF ketorolac 10 mg tablet 10 mg PO Q8H PRN (Reason: pain) 3 Days Qty: 10 0RF ibuprofen [IBU] 800 mg tablet 800 mg PO Q8HP PRN (Reason: Moderate Pain) Qty: 30 0RF amoxicillin-pot clavulanate 875-125 mg Tablet 1 tab PO Q12H Qty: 20 0RF amoxicillin-pot clavulanate 875-125 mg tablet 1 tab PO BID 7 Days Qty: 14 0RF Referrals Follow up/Referrals: Provider,ReferralMD [Primary Care Provider] - See instructions Activity Restrictions/Add. Instructions Additional Instructions/Restrictions: Call make a follow-up appointment with Dr. Puga for first available appointment. We have sent opiate pain medications to your pharmacy. I will also send nonopiate pain medications to your pharmacy. Clinical Impressions Clinical Impression: Fracture of distal end of fibula, Ankle instability Discharge ED Provider: Erich Carson General Adult HPI General Chief complaint: Extremity Injury, Lower Stated complaint: right ankle pain Time Seen by Provider: 01/31/24 17:07 History of Present Illness HPI narrative: Patient presents for evaluation of right lower extremity pain/trauma. Patient was at work and his foot got caught between the slats of a pallet and he fell and he felt an immediate pain and saw angulation of his right lower extremity. He denies loss of consciousness chest pain shortness of breath fever chills hemoptysis hematochezia melena nausea vomit diarrhea. Related Data Previous Rx's Medication Instructions Recorded cephalexin 500 mg capsule 500 mg PO TID #30 caps 05/08/23 ketorolac 10 mg tablet 10 mg PO Q8H PRN pain 3 days #10 06/20/23 tabs amoxicillin 875 mg-potassium 1 tab PO Q12H #20 tabs 06/12/23 clavulanate 125 mg tablet ibuprofen 800 mg tablet (IBU) 800 mg PO Q8HP PRN Moderate Pain 06/12/23 #30 tabs amoxicillin 875 mg-potassium 1 tab PO BID 7 days #14 tabs 11/05/23 clavulanate 125 mg tablet hydrocodone 5 mg-acetaminophen 325 1 tab PO Q6H PRN pain 3 days #12 01/31/24 mg tablet tabs Allergies Allergy/AdvReac Type Severity Reaction Status Date / Time No Known Allergies Allergy Verified 12/01/22 10:59 [facility] Disclaimer: The information contained in this section may have been updated after the patient was seen, as this information can be updated by other users. Medical History No significant past medical history Surgical History No history of previous surgery Family History Other No significant family history Social History Smoking Status: Current every day smoker alcohol intake: never current occupational status: other Travel in the last 8 weeks: None ROS Obtained: Yes Systems reviewed as appropriate & no additional complaints except as documented Physical Exam General General appearance: alert and in no apparent distress Head Head exam: atraumatic Respiratory Respiratory exam: Present normal lung sounds bilaterally Cardiovascular Cardiovascular exam: Present regular rate and normal rhythm Neurological Exam Neurological exam: Present alert and oriented X3 Psychiatric Psychiatric exam: Present normal affect Other Other exam information: The right lower extremity has angulation at the distal fibula proximal to the ankle joint itself. There is ecchymosis and swelling noted. It is exquisitely tender to palpation. The foot is externally rotated. Patient is neurovascularly intact distal to the fracture however. He has palpable DP and PT pulses. Medical Decision Making Medical Records Medical records reviewed: Yes I reviewed the patient's medical records. Zhou Inquiry Pt receiving controlled substance: No Vital Signs: 01/31/24 16:58 01/31/24 17:25 01/31/24 17:31 Temperature 98.6 F Temperature Source Oral Pulse Rate 73 66 Pulse Rate [Radial] 75 Respiratory Rate 18 20 20 Blood Pressure 140/84 148/65 H Blood Pressure [Right Arm] 126/79 Blood Pressure Mean 102 92 Blood Pressure Mean [Right Arm] 94 Blood Pressure Source Blood Pressure Source [Right Arm] Automatic Cuff Blood Pressure Position Blood Pressure Position [Right Arm] Sitting 02 Sat by Pulse Oximetry 100 99 96 Oxygen Delivery Method Room Air 01/31/24 18:00 01/31/24 18:15 01/31/24 18:40 Temperature 98.9 F Temperature Source Oral Pulse Rate 66 71 74 Pulse Rate [Radial] Respiratory Rate 20 20 18 Blood Pressure 142/79 H 153/65 H 135/70 Blood Pressure [Right Arm] Blood Pressure Mean 96 94 Blood Pressure Mean [Right Arm] Blood Pressure Source Automatic Cuff Blood Pressure Source [Right Arm] Blood Pressure Position Sitting Blood Pressure Position [Right Arm] 02 Sat by Pulse Oximetry 98 98 Oxygen Delivery Method Room Air Orders (Tests/Meds): ED MEDICATIONS Discontinued Medications Generic Name Dose Route Start Last Admin Trade Name Adonay PRN Reason Stop Dose Admin Acetaminophen 1,000 mg 01/31/24 17:11 01/31/24 17:37 Acetaminophen 1,000mg/100ml Vial IV 01/31/24 17:12 1,000 mg ONCE ONE Administration Hydrocodone Bitart/Acetaminophen 1 tab 01/31/24 18:30 01/31/24 18:32 Hydrocodone/Apap 5/325 Mg Tablet PO 01/31/24 18:31 1 tab ONCE ONE Administration Hydromorphone HCl 0.5 mg 01/31/24 17:11 01/31/24 17:37 Hydromorphone 2mg/Ml Syringe IV 01/31/24 17:12 0.5 mg ONCE ONE Administration Ketorolac Tromethamine 15 mg 01/31/24 17:11 01/31/24 17:37 Ketorolac 30mg/Ml Vial IV 01/31/24 17:12 15 mg ONCE ONE Administration ORDERS Category Date Time Status Ankle XR -Right minimum 3 Views [XR ankle RT min 3V] Exams 01/31/24 17:10 Completed Stat Foot XR right 2 views [XR foot RT 2V] Stat Exams 01/31/24 17:10 Completed Tibia/fibula XR right 2 views [XR tibia fibula RT 2V] Exams 01/31/24 17:10 Completed Stat Medical Decision Narrative: In summary patient is a 28-year-old male who presents to the emergency department for evaluation of right lower extremity injury. Patient is hemodynamically stable upon arrival, afebrile. Physical exam is remarkable for angulated and externally rotated distal right lower extremity however he is n eurovascularly intact distally. Differential diagnosis includes multiple fractures versus single fracture versus unstable joint versus compartment syndrome versus joint dislocation/instability. Initial workup will be conducted with plain film x-rays. Initial interventions include Toradol Tylenol Dilaudid. Initial workup reviewed by me and my informal interpretation shows a trimalleolar fracture. Upon repeat evaluation patient has remained neurovascularly intact. Discussed patient management with Dr. Miles and he will see the patient is first available appointment and patient will be placed in a Gustavo splint be nonweightbearing and given crutches.. Given this is appropriate for discharge home with nonweightbearing instructions. Critical Care Critical Care Time Critical Care Time: No
--- NOTE | 2024-01-31 17:10 | XR_ITS ---
PROCEDURE INFORMATION: Exam: XR Right Foot Exam date and time: 01/31/2024 5:39 PM Age: 28 years old Clinical indication: Injury or trauma; Fall; Blunt trauma; Foot; Right TECHNIQUE: Imaging protocol: Radiologic exam of the right foot. Views: 1 or 2 views. COMPARISON: CR XR ANKLE RT MIN 3V 01/31/2024 5:39 PM FINDINGS: Bones/joints: Distal fibular shaft spiral fracture occurring above the tibiotalar joint with mild lateral and posterior displacement of the distal fracture fragment. Mildly displaced and mildly comminuted posterior malleolus fracture. Mild calcaneal enthesopathy. Soft tissues: Circumferential ankle soft tissue thickening. IMPRESSION: 1. Mildly displaced distal fibular shaft spiral fracture occurring above the tibiotalar joint. 2. Mildly displaced and mildly comminuted posterior malleolus fracture.
--- NOTE | 2024-01-31 17:10 | XR_ITS ---
PROCEDURE INFORMATION: Exam: XR Right Tibia and Fibula Exam date and time: 01/31/2024 5:39 PM Age: 28 years old Clinical indication: Injury or trauma; Fall; Blunt trauma; Lower leg; Right TECHNIQUE: Imaging protocol: Radiologic exam of the right tibia and fibula. Views: 2 views. COMPARISON: CR XR ANKLE RT MIN 3V 01/31/2024 5:39 PM FINDINGS: Bones/joints: Distal fibular shaft spiral fracture occurring above the tibiotalar joint with mild lateral and posterior displacement of the distal fracture fragment. Mildly displaced and mildly comminuted posterior malleolus fracture. Dense sclerosis and callus formation of the medial tibial shaft. Mild calcaneal enthesopathy. Soft tissues: Circumferential ankle soft tissue thickening. IMPRESSION: 1. Mildly displaced distal fibular shaft spiral fracture occurring above the tibiotalar joint. 2. Mildly displaced and mildly comminuted posterior malleolus fracture. 3. Dense sclerosis and callus formation of the medial tibial shaft, possibly representing an old healed fracture.
--- NOTE | 2024-01-31 17:10 | XR_ITS ---
PROCEDURE INFORMATION: Exam: XR Right Ankle Exam date and time: 01/31/2024 5:39 PM Age: 28 years old Clinical indication: Injury or trauma; Fall; Blunt trauma; Ankle; Right TECHNIQUE: Imaging protocol: Radiologic exam of the right ankle. Views: 3 or more views. COMPARISON: CR XR FOOT RT 2V 01/31/2024 5:39 PM FINDINGS: Bones/joints: Distal fibular shaft spiral fracture occurring above the tibiotalar joint with mild lateral and posterior displacement of the distal fracture fragment. Mildly displaced and mildly comminuted posterior malleolus fracture. Mild calcaneal enthesopathy. Soft tissues: Circumferential ankle soft tissue thickening. IMPRESSION: 1. Mildly displaced distal fibular shaft spiral fracture occurring above the tibiotalar joint. 2. Mildly displaced and mildly comminuted posterior malleolus fracture.
[2024-01-31 17:25] VITALS: BP 140/84; PULSE 73; RESP 20; O2SAT 99
[2024-01-31 17:31] VITALS: BP 148/65; PULSE 66; RESP 20; O2SAT 96
[2024-01-31] MEDS: KETOROLAC 30MG/ML VIAL 15 MG IV (17:37)
[2024-01-31] MEDS: ACETAMINOPHEN 1,000MG/100ML VIAL 1000 MG IV (17:37)
[2024-01-31] MEDS: HYDROMORPHONE 2MG/ML SYRINGE 0.5 MG IV (17:37)
[2024-01-31 18:00] VITALS: BP 142/79; PULSE 66; RESP 20; O2SAT 98
[2024-01-31 18:15] VITALS: BP 153/65; PULSE 71; RESP 20; O2SAT 98
[2024-01-31] MEDS: HYDROCODONE/APAP 5/325 MG TABLET 1 TAB PO (18:32)
[2024-01-31 18:40] VITALS: BP 135/70; PULSE 74; RESP 18; TEMP 37.2; O2SAT 98
--- NOTE | 2024-02-04 22:43 | PC.NURSE ---
Chart accessed for ortho paperwork
== END 2024-01-31 18:40 | disposition home or self-care (01) ==
PROVIDERS: Emergency Provider Student in an Organized Health Care Education/Training Program
DX: S82.421A Displaced transverse fracture of shaft of right fibula, initial encounter for closed fracture (principal); W18.30XA Fall on same level, unspecified, initial encounter; Y99.0 Civilian activity done for income or pay; F17.200 Nicotine dependence, unspecified, uncomplicated
CPT/HCPCS: 73590; 73610; 73620; 96374; 96375; 99284; J0131

== ENCOUNTER 2024-02-11 12:43 | Day surgery (SDC) | payer OTHER, SELFPAY ==
[2024-02-08 13:27] VITALS: BMI 30.5
[2024-02-11] VITALS (9 sets, daily range): BP systolic 145–160; BP diastolic 73–95; PULSE 62–82; RESP 15–18; TEMP 36.6–43; O2SAT 91–98
[2024-02-11] MEDS: LACTATED RINGERS 1000ML 1,000 ML 100 ML IV (12:53)
[2024-02-11 13:27] LABS: Basophils # 0.1 K/mm3 (0-0.2); Basophils % 0.5 % (0.1-2.0); Eosinophils # 0.1 K/mm3 (0.0-0.4); Eosinophils % 1.5 % (0.1-12.0); Hematocrit 44.2 % (42.0-52.0); Hemoglobin 15.1 g/dL (14.1-18.0); Lymphocytes # 2.6 K/mm3 (0.7-4.5); Lymphocytes % 27.4 % (10-50); Mean Corpuscular HGB Conc 34.2 g/dL (31.8-35.4); Mean Corpuscular Hemoglobin 29.4 pg (27.0-31.2); Mean Corpuscular Volume 85.8 fl (80-94); Mean Platelet Volume 7.5 fl (7.4-10.4); Monocytes # 0.5 K/mm3 (0.1-1.0); Monocytes % 5.7 % (1.7-9.3); Neutrophils # 6.1 K/mm3 (1.8-7.8); Neutrophils % 64.9 % (37.0-80.0); Platelet Count 386 K/mm3 (142-424); Red Blood Count 5.15 M/mm3 (4.60-6.20); Red Cell Distribution Width 13.7 % (11.5-17.5); White Blood Count 9.4 K/mm3 (4.8-10.8)
[2024-02-11 13:33] LABS: Chloride 108 mmol/L (98-107)
[2024-02-11 13:34] LABS: Potassium 3.8 mmoL/L (3.5-5.1); Sodium 138 mmol/L (136-145)
[2024-02-11 13:36] LABS: Alanine Aminotransferase 67 U/L (12-78); Albumin Level 4.5 g/dl (3.5-5.0); Albumin/Globulin Ratio 1.6 (1.1-1.8); Alkaline Phosphatase 106 U/L (38-126); Anion Gap 10.8 mEq/L (5-15); Aspartate Amino Transferase 43 U/L (17-59); Bilirubin,Total 0.7 mg/dl (0.2-1.3); Blood Urea Nitrogen 14 mg/dl (9-20); Carbon Dioxide 23 mmol/L (22.0-30.0); Creatinine Clearance Estimated 180 mL/min (50-200); Estimated Glomerular Filt Rate 102 ml/min (>60); GFR (African American) 123 ML/MIN (>60); Globulin 2.9 g/dL (1.3-3.2); Total Protein,Serum 7.4 g/dl (6.3-8.2)
[2024-02-11 13:37] LABS: Calcium 9.9 mg/dl (8.4-10.2); Glucose 104 mg/dl (74-100)
[2024-02-11] MEDS: CEFAZOLIN SODIUM 2 GM in 0.9 % SODIUM CHLORIDE 100 ML IV (15:43)
--- NOTE | 2024-02-11 16:03 | EXP.ANES.CKL ---
[facility] Disclaimer: The information contained in this section may have been updated after the patient was seen, as this information can be updated by other users. Medical History No significant past medical history Surgical History No history of previous surgery Family History Other Family history of diabetes mellitus type II No significant family history Social History Smoking Status: Former smoker alcohol intake: former substance use type: denies use current occupational status: employed and other Travel in the last 8 weeks: None [facility] Anesthesia Checklist Patient Identification Patient Identification: Arm Band Structural Data Admitted From: Home Planned Operative Procedure/s: ORIF Right Ankle Consent for Planned Operative Procedure(s) Verified: Yes Verified Documents: Surgical Consent and History and Physical NPO Status Verified Time NPO: 00:00 Additional verifications Anesthesia Reactions: No Hx Blood Transfusions: No Blood Transfusion Reaction: No Airway Assessment Mallampati Score:: Class II C-Spine Mobility Assessed: Yes TMJ Mobility Assessed: Yes Dentition: Good Dentition Neurological Assessment Level of Consciousness: Awake and Alert Anesthesia Plan Anesthesia Risk discussed: Yes Anesthesia Plan: Verified ASA Class: II Anesthesia Type: General w/block (Right Popliteal/Adductor Canal Block performed by Cathleen Olvera CRNA)
--- NOTE | 2024-02-11 16:40 | XR_ITS ---
PROCEDURE INFORMATION: Exam: XR Right Ankle Exam date and time: 02/11/2024 4:30 PM Age: 28 years old Clinical indication: Screening exam; Orif RT ankle; Prior surgery; Surgery date: Post-operative (0-2 days); Surgery type: Intra op TECHNIQUE: Imaging protocol: Radiologic exam of the right ankle. Views: 1 or 2 views. COMPARISON: CR XR ANKLE RT MIN 3V 01/31/2024 5:39 PM FINDINGS: Bones/joints: Intraoperative fluoroscopy films demonstrate surgical fixation of an ankle fracture dislocation. Soft tissues: Normal. IMPRESSION: Intraoperative fluoroscopy films demonstrate surgical fixation of an ankle fracture dislocation.
--- NOTE | 2024-02-11 16:47 | EXP.OP.NOTE ---
Date of procedure: 02/11/24 Pre-op Diagnosis:: Right bimalleolar ankle fracture with syndesmotic tear Post-op Diagnosis:: Right bimalleolar ankle fracture with syndesmotic tear Procedure performed:: Open reduction internal fixation right bimalleolar ankle fracture with syndesmotic repair Surgeon:: Srinivas Miles DO ENGINEERING PROJECT DESIGNER:: Jarrett Donnelly Anesthesia: GETA and regional Estimated blood loss (mL): 0 Operative findings:: High lateral malleolus fracture with syndesmotic widening increase medial joint space widening Implants Arthrex one third tubular plate 3.5 mm cortical screws and tight rope mechanism Operative note:: Patient was identified preoperatively right ankle marked with yes my initials. Underwent a block with anesthesia. Taken the operating room placed upon the operating bed general anesthesia administered. Airway secured. Right lower extremity then prepped and draped normal sterile fashion. Once prepped and draped final operative timeout performed to identify proper patient procedure and extremity. Everyone involved in the case agreed. There were no counter indications to beginning. Did receive preoperative antibiotics. X-ray was brought into identify the extent of the fibula fracture proximally. This was marked on the skin Esmarch was used to exsanguinate the extremity and pneumatic tourniquet was inflated to 300 mmHg. Skin knife was used incise through skin careful dissection taken down to identify the fracture site. Fracture site was then cleaned of soft tissue edges of the fracture were cleaned and a [id number] and lobster claw clamp were utilized for pulmonary reduction of the fracture. This is an oblique fibula fracture above the level of the joint. A lag screw was placed anterior to posterior for fixation of the fracture. One third tubular plate was selected. Cortical screws were placed above and below the lag screw and fracture site. Distalmost screw 4 oh cancellous screw was placed. Additional lag screws proximally. X-rays brought into identify proper reduction of the fracture and reduction of the syndesmosis. Using the third hole from the bottom of the plate K wire was then placed through 4 cortex of the fibula and tibia as a guidewire for the tight rope. X-rays were brought in to show adequate placement of the guidewire. And then the cannulated drill bit was used to open fibula through the medial tibia. Tight rope was then placed to the medial aspect of the tibia the button was then flipped mechanism was tightened and under direct visualization the syndesmosis was reduced and tightened by pulling tension on the tight rope mechanism. X-rays were taken AP and lateral views show good reduction. The tight rope limbs were then cut outside the button irrigation wound performed. Deep layers closed with 0 Vicryl suture subcutaneous 2-0 Vicryl suture 3-0 nylon the skin for closure. Sterile dressing placed. Posterior and sterile splint placed. Patient taken recovery stable condition Condition: stable Disposition: PACU Complications:: None apparent
--- NOTE | 2024-02-11 17:13 | EXP.ANES.I ---
[facility] Anesthesia Record Part I Anesthesia Record I Intake, IV Amount: 1,500 Hydration: Adequate Estimated blood loss (mL): 5 Urine output (mL): 0 Blood Products used (#): none Blood Pressure: 150/77 SaO2: 91 Pulse Rate: 62 Airway Patency: Patent Respiratory Rate: 16 Temperature: 98.6 F Patient is:: Drowsy and Stable Stable to PACU at:: 17:10
--- NOTE | 2024-02-12 07:26 | EXP.ANES.II ---
[facility] Anesthesia Record Part II Anesthesia Record Part II Discharge Time: 17:30 Destination: Surgical Day Care (OP Surgery) PACU nurse assessment reviewed?: Yes Patient Condition:: Good Anesthesia Complications:: None Swallowing reflex intact?: Yes Airway Patency: Patent Cyanosis?: No Blood Pressure: 156/73 SaO2: 97 Respiratory Rate: 15 Pulse Rate: 82 Temperature: 98.6 F Mental Status: Alert & Oriented Pain level:: 0 Nausea and/or vomitting:: None Intake, IV Amount: 0 Hydration: Adequate
[2024-02-12 07:28] VITALS: BP 156/73; PULSE 82; RESP 15; TEMP 37; O2SAT 97
== END 2024-02-11 18:01 | disposition home or self-care (01) ==
PROVIDERS: Visit Provider Orthopaedic Surgery
PROC: (CPT 27814; principal; 2024-02-11 12:45)
DX: S82.841A Displaced bimalleolar fracture of right lower leg, initial encounter for closed fracture (principal); W23.1XXA Caught, crushed, jammed, or pinched between stationary objects, initial encounter; Y92.69 Other specified industrial and construction area as the place of occurrence of the external cause; Y99.0 Civilian activity done for income or pay
CPT/HCPCS: 27814; 27829; 73600; 76000; 80053; 85025; 96374; C1713; C1776; J2405

== ENCOUNTER 2024-02-28 14:41 | Outpatient (CLI) | payer OTHER, SELFPAY ==
--- NOTE | 2024-02-28 14:55 | XR_ITS ---
FINAL REPORT CLINICAL HISTORY: Rt Ankle Fx COMPARISON: 01/31/2024 FINDINGS: RIGHT ANKLE: Three views of the right ankle were obtained. There has been interval postoperative changes of ORIF of the distal fibula with a plate and screws placed. The joint spaces and mortise are intact. There is no soft tissue abnormality. IMPRESSION: Interval postoperative changes of ORIF of the distal fibula as described. Reviewed, Interpreted and Dictated by Ivan Luna III, MD Transcribed by Celia Rhodes Authenticated and [facility]
== END 2024-02-28 23:59 ==
LOC: RAD 14:42
PROVIDERS: Visit Provider Orthopaedic Surgery
DX: M25.571 Pain in right ankle and joints of right foot (principal); S82.841A Displaced bimalleolar fracture of right lower leg, initial encounter for closed fracture
CPT/HCPCS: 73610

== ENCOUNTER 2024-03-20 12:59 | Outpatient (CLI) | payer OTHER, SELFPAY ==
--- NOTE | 2024-03-20 13:04 | XR_ITS ---
FINAL REPORT CLINICAL HISTORY: Right Ankle Fx; f/u COMPARISON: 01/31/2024 FINDINGS: Three views show interval post ORIF of the distal fibula. The hardware is unremarkable. There is a mildly displaced posterior malleolar fracture. The mortise is intact. IMPRESSION: Status post ORIF as above. Reviewed, Interpreted and Dictated by Cathleen Larose MD Transcribed by Bisi Alvarado Authenticated and [facility]
== END 2024-03-20 23:59 | disposition home or self-care (01) ==
LOC: RAD 12:59
PROVIDERS: Visit Provider Orthopaedic Surgery
DX: M25.571 Pain in right ankle and joints of right foot (principal); S82.841A Displaced bimalleolar fracture of right lower leg, initial encounter for closed fracture
CPT/HCPCS: 73610

== ENCOUNTER 2024-04-03 23:37 | Emergency (ER) | payer OTHER, SELFPAY ==
[2024-04-03 23:40] VITALS: BP 158/89; PULSE 61; RESP 17; TEMP 36.7; O2SAT 98; BMI 31.1
--- NOTE | 2024-04-03 23:49 | HMH.EDGENADL ---
Discharge Plan Disposition Patient Disposition: Home, Self-Care Prescriptions Prescriptions: New amoxicillin-pot clavulanate 875-125 mg tablet 1 tab PO BID 7 Days Qty: 14 0RF Referrals Follow up/Referrals: Provider,Referral, [Primary Care Provider] - See instructions Activity Restrictions/Add. Instructions Additional Instructions/Restrictions: Please take antibiotics as prescribed for treatment of dental infection. Please follow-up with dentistry soon as possible for further treatment. Clinical Impressions Clinical Impression: Pain, dental, Acute pulpitis Discharge ED Provider: Virgil Elizabeth General Adult HPI General Chief complaint: Dental/Oral Stated complaint: throbbing pain mouth,possible infected wisdomtooth Time Seen by Provider: 04/03/24 23:42 Source of Information: Significant Other History of Present Illness HPI narrative: 28-year-old male with history of prior dental infections presents with left-sided dental pain. He reports both the maxillary and mandibular jaw is hurting. He has had issues with his wisdom teeth in the past. There was some teeth on the right have been taken out but he is concerned that the teeth on the left may become infected. He denies any fevers or systemic symptoms. Reports no difficulty swallowing or breathing. Related Data Previous Rx's Medication Instructions Recorded amoxicillin 875 mg-potassium 1 tab PO BID 7 days #14 tabs 04/03/24 clavulanate 125 mg tablet Allergies Allergy/AdvReac Type Severity Reaction Status Date / Time azithromycin Allergy Intermediate Hives Verified 03/20/24 13:39 [facility] Disclaimer: The information contained in this section may have been updated after the patient was seen, as this information can be updated by other users. Medical History No significant past medical history Surgical History No history of previous surgery Family History Other Family history of diabetes mellitus type II No significant family history Social History Smoking Status: Current every day smoker alcohol intake: former substance use type: denies use current occupational status: employed and other Travel in the last 8 weeks: None ROS Obtained: Yes All systems reviewed & no additional complaints except as documented Physical Exam General General appearance: alert and in no apparent distress Head Head exam: atraumatic and normocephalic Eye Eye exam: Present normal appearance, PERRL and EOMI ENT ENT exam: Present normal external ear exam and other (Fractured/carious posterior most molars on the left maxilla and mandible) Neck Neck exam: Present normal inspection and full ROM Chest Chest inspection: Present normal inspection and symmetric chest wall rise; Absent tenderness Respiratory Respiratory exam: Present normal lung sounds bilaterally; Absent respiratory distress Cardiovascular Cardiovascular exam: Present regular rate and normal rhythm Abdominal Exam Abdominal exam: Present soft; Absent distention, tenderness or guarding Extremities Exam Extremities exam: Present normal inspection; Absent edema or joint swelling Back Exam Back exam: Present normal inspection; Absent tenderness Neurological Exam Neurological exam: Present alert and oriented X3; Absent motor sensory deficit Psychiatric Psychiatric exam: Present normal affect and normal mood Skin Skin exam: Present warm, dry and normal color Lymphatic Lymphatic Findings: no adenopathy Medical Decision Making Medical Records Medical records reviewed: Yes I reviewed the patient's medical records. Zhou Inquiry Pt receiving controlled substance: No Zhou was queried for this patient: No Vital Signs: 04/03/24 23:40 04/03/24 23:59 Temperature 98.1 F 98.1 F Temperature Source Oral Oral Pulse Rate 61 Pulse Rate [Left Radial] 61 Respiratory Rate 17 17 Blood Pressure 158/89 H Blood Pressure [Right Arm] 158/89 H Blood Pressure Mean [Right Arm] 112 Blood Pressure Source Automatic Cuff Blood Pressure Source [Right Arm] Automatic Cuff Blood Pressure Position Sitting Blood Pressure Position [Right Arm] Sitting 02 Sat by Pulse Oximetry 98 Oxygen Delivery Method Room Air Room Air Lab Data Lab results reviewed: Yes I reviewed the patient's lab results. Orders (Tests/Meds): ED MEDICATIONS Discontinued Medications Generic Name Dose Route Start Last Admin Trade Name Freq PRN Reason Stop Dose Admin Amoxicillin/Clavulanate Potassium 1 each 04/03/24 23:52 04/04/24 00:05 Amoxicillin/Clavulanate Potassium 875/125mg Tablet PO 04/03/24 23:53 1 each ONCE ONE Administration Medical Decision Narrative: 28-year-old male with history of prior dental infections presents with left-sided dental pain. Differential diagnosis includes but not limited to dental fracture, pulpitis, odontogenic infection, abscess, otitis. Low concern for emergent pathology at this time. Patient was given dose of Augmentin in ED for dental infection and was discharged in stable condition with prescription for Augmentin and instructions to see dentistry as soon as possible. Procedures Risk/Benefits of Procedure(s) Were Explained: Yes Critical Care Critical Care Time Critical Care Time: No
[2024-04-03 23:59] VITALS: BP 158/89; PULSE 61; RESP 17; TEMP 36.7; O2SAT 98
[2024-04-04] MEDS: AMOXICILLIN/CLAVULANATE POTASSIUM 875/125MG TABLET 1 EACH PO (00:05)
== END 2024-04-04 00:11 | disposition home or self-care (01) ==
LOC: ER 04-04 00:03
PROVIDERS: Emergency Provider Emergency Medicine
DX: K08.89 Other specified disorders of teeth and supporting structures (principal); K04.01 Reversible pulpitis; R68.84 Jaw pain; F17.210 Nicotine dependence, cigarettes, uncomplicated
CPT/HCPCS: 99283

== ENCOUNTER 2024-04-14 23:32 | Emergency (ER) | payer OTHER, SELFPAY ==
[2024-04-14 23:34] VITALS: BP 141/82; PULSE 68; RESP 20; TEMP 36.9; O2SAT 98; BMI 31.1
--- NOTE | 2024-04-14 23:40 | ED_ITS ---
Discharge Plan Disposition Patient Disposition: Home, Self-Care Prescriptions Prescriptions: New amoxicillin-pot clavulanate 875-125 mg tablet 1 tab PO BID 7 Days Qty: 14 0RF No Action amoxicillin-pot clavulanate 875-125 mg tablet 1 tab PO BID 7 Days Qty: 14 0RF Referrals Follow up/Referrals: Provider,Referral, [Primary Care Provider] - See instructions Activity Restrictions/Add. Instructions Additional Instructions/Restrictions: Please follow-up with your primary care provider. Please return to the emergency department if you develop any new or worsening symptoms or become concerned for your health. Please follow-up with a dentist as soon as possible. Consider following up the walk-in dentistry clinic. It is first come first serve, there is a small co-pay to be seen, it is open most weekdays. Clinical Impressions Clinical Impression: Acute pulpitis Discharge ED Provider: Virgil Elizabeth General Adult HPI General Chief complaint: Dental/Oral Stated complaint: infected wisdom tooth Time Seen by Provider: 04/14/24 23:36 History of Present Illness HPI narrative: 28-year-old male with history of ongoing dental infection presents with worsening pain. He was here about a week ago, got antibiotics and had improvement in symptoms. He completed his antibiotics but was unable to get the tooth managed by dentist and so the pain has returned. He denies any fever or purulent drainage. Left maxillary posterior most tooth is the one that is giving him issues. Related Data Previous Rx's Medication Instructions Recorded amoxicillin 875 mg-potassium 1 tab PO BID 7 days #14 tabs 04/03/24 clavulanate 125 mg tablet amoxicillin 875 mg-potassium 1 tab PO BID 7 days #14 tabs 04/14/24 clavulanate 125 mg tablet Allergies Allergy/AdvReac Type Severity Reaction Status Date / Time azithromycin Allergy Intermediate Hives Verified 03/20/24 13:39 [facility] Disclaimer: The information contained in this section may have been updated after the patient was seen, as this information can be updated by other users. Medical History No significant past medical history Surgical History No history of previous surgery Family History Other Family history of diabetes mellitus type II No significant family history Social History Smoking Status: Current every day smoker alcohol intake: former substance use type: denies use current occupational status: employed and other Travel in the last 8 weeks: None ROS Obtained: Yes All systems reviewed & no additional complaints except as documented Physical Exam General General appearance: alert and in no apparent distress Head Head exam: atraumatic and normocephalic Eye Eye exam: Present normal appearance, PERRL and EOMI ENT ENT exam: Present normal oropharynx, normal external ear exam and other (Eroded posterior most teeth in the left mandible and maxilla, no abscess or fluctuance noted.) Neck Neck exam: Present normal inspection and full ROM Chest Chest inspection: Present normal inspection and symmetric chest wall rise; Absent tenderness Respiratory Respiratory exam: Present normal lung sounds bilaterally; Absent respiratory distress Cardiovascular Cardiovascular exam: Present regular rate and normal rhythm Abdominal Exam Abdominal exam: Present soft; Absent distention, tenderness or guarding Extremities Exam Extremities exam: Present normal inspection; Absent edema or joint swelling Back Exam Back exam: Present normal inspection; Absent tenderness Neurological Exam Neurological exam: Present alert and oriented X3; Absent motor sensory deficit Psychiatric Psychiatric exam: Present normal affect and normal mood Skin Skin exam: Present warm, dry and normal color Lymphatic Lymphatic Findings: no adenopathy Medical Decision Making Medical Records Medical records reviewed: Yes I reviewed the patient's medical records. Zhou Inquiry Pt receiving controlled substance: No Zhou was queried for this patient: No Vital Signs: 04/14/24 23:34 Temperature 98.5 F Temperature Source Oral Pulse Rate [Right Radial] 68 Respiratory Rate 20 Blood Pressure [Right Arm] 141/82 H Blood Pressure Mean [Right Arm] 101 02 Sat by Pulse Oximetry 98 Oxygen Delivery Method Room Air Lab Data Lab results reviewed: Yes I reviewed the patient's lab results. Orders (Tests/Meds): ED MEDICATIONS Discontinued Medications Generic Name Dose Route Start Last Admin Trade Name Freq PRN Reason Stop Dose Admin Amoxicillin/Clavulanate Potassium 1 each 04/14/24 23:46 Amoxicillin/Clavulanate Potassium 875/125mg Tablet PO 04/14/24 23:47 ONCE ONE Lidocaine/Epinephrine 5 ml 04/14/24 23:42 Lidocaine 1% W/Epi 1:100,000 20ml Vial SQ 04/14/24 23:43 ONCE ONE Medical Decision Narrative: 28-year-old male with history of dental infection presents with return of dental pain after completing antibiotics. He has been unable to see dentist yet.. History was obtained interactive discussion with patient, chart review. On arrival, patient is [afebrile, hemodynamically stable, satting appropriately, alert, oriented x4, GCS 15], moving all extremities spontaneously. Full physical exam performed and significant for eroded/carious teeth, specifically the most posterior molars in the left maxilla and mandible. Differential includes but is not limited to dental fracture, pulpitis, odontogenic infection, deep space infection.. Patient was given dental block and Augmentin for symptomatic management and correction of underlying abnormalities. Given patient history, exam and workup, patient's presentation most likely represents pulpitis. Patient discharged in stable condition with prescription for Augmentin. Procedures Risk/Benefits of Procedure(s) Were Explained: Yes Nerve Block Nerve Block 1: Time out performed: Yes Local Anesthetic: lidocaine 1% and with epi Amount of anesthesia used (mL): 5 Side: Left Intraoral Nerve Block: superior alveolar Procedure Successful: Yes Patient Tolerated Procedure: well and no complications Critical Care Critical Care Time Critical Care Time: No
[2024-04-14] MEDS: AMOXICILLIN/CLAVULANATE POTASSIUM 875/125MG TABLET 1 EACH PO (23:56)
[2024-04-14] MEDS: LIDOCAINE 1% W/EPI 1:100,000 20ML VIAL 5 ML SQ (23:56)
[2024-04-14 23:59] VITALS: BP 141/82; PULSE 65; RESP 16; TEMP 36.8; O2SAT 98
== END 2024-04-15 00:01 | disposition home or self-care (01) ==
PROVIDERS: Emergency Provider Emergency Medicine
DX: K04.01 Reversible pulpitis (principal); F17.210 Nicotine dependence, cigarettes, uncomplicated
CPT/HCPCS: 99283

== ENCOUNTER 2024-04-15 13:31 | Outpatient (CLI) | payer OTHER, SELFPAY ==
--- NOTE | 2024-04-15 13:39 | XR_ITS ---
FINAL REPORT CLINICAL HISTORY: right ankle pain COMPARISON: 02/28/2024 FINDINGS: 3 images of the right ankle were obtained. Once again a sideplate and screws are present in the distal fibula. There is transverse hardware in the distal tibia as an anchor. There is no evidence of acute fracture or dislocation. The joint spaces are intact. There is no soft tissue abnormality identified. IMPRESSION: Prior ORIF distal tibia and fibula as described. No acute bony abnormality identified. Reviewed, Interpreted and Dictated by Mickey Lafleur MD Transcribed by Celia Rhodes Authenticated and [facility]
== END 2024-04-15 23:59 | disposition home or self-care (01) ==
PROVIDERS: Visit Provider Orthopaedic Surgery
DX: M25.571 Pain in right ankle and joints of right foot (principal)
CPT/HCPCS: 73610

== ENCOUNTER 2024-05-13 09:32 | Outpatient (CLI) | payer OTHER, SELFPAY ==
--- NOTE | 2024-05-13 09:39 | XR_ITS ---
FINAL REPORT CLINICAL HISTORY: Rt Ankle Pain COMPARISON: 04/15/2024 FINDINGS: RIGHT ANKLE 3 views of the right ankle were obtained. Postoperative changes are similar to the prior exam. There is no acute fracture or dislocation. The ankle mortise is intact. Visualized joint spaces are normally aligned. Soft tissues are unremarkable. IMPRESSION: Postoperative changes without acute bony abnormality. Reviewed, Interpreted and Dictated by Cathleen Larose MD Transcribed by Lila Ley Authenticated and . [facility]
== END 2024-05-13 23:59 | disposition home or self-care (01) ==
LOC: RAD 09:35
PROVIDERS: PCP Nurse Practitioner Family; Visit Provider Physician Assistant Surgical
DX: M25.571 Pain in right ankle and joints of right foot (principal)
CPT/HCPCS: 73610

== ENCOUNTER 2024-05-20 07:58 | Outpatient (RCR) | payer OTHER, SELFPAY ==
--- NOTE | 2024-05-20 15:11 | HMH.PTOPEV ---
PT Outpatient Evaluation Rehab PT Outpatient Evaluation Start: 05/20/24 08:01 Freq: Status: Active Protocol: Document 05/20/24 08:01 MONICA (Rec: 05/20/24 08:56 MONICA [email or web address]) E-signed By Victorina Wiggins, PT Outpatient Therapy Subjective History Subjective History This is an initial evaluation for 28 y/o male, Francisco Arias, who presents s/p ORIF right bimalleolar ankle fracture with syndesmotic repair on . Pt reports he was supposed to come to PT earlier but forgot his appointments. Pt reports he has been out of the boot and is FWBing. Pt is currently back to work and reports he does well but notices some swelling and pain towards end of his shift. Pt reports he has been recovering well and only has issues with SLS, walking long distances, and tight achilles. New diagnosis of cancer in past 12 No months? Chief Complaint Pain,Stiff Symptom Type Ache Symptoms Relieved By Rest/Positioning,Ice Prior Functional Limitations None Current Functional Limitations Squatting,Recreation Activity, Walking,Stairs,Balance Ankle/Foot Eval Gait Observation General Gait Pattern Observation Antalgic Gait Palpation Tenderness right Ankle/Foot Palpation Findings Tenderness Ankle/Foot Palpation Overall Comment Medial joint line 1/4 TTP ROM Ankle/Foot Dorsiflexion w/Knee Flexed 5 Active Range of Motion (degrees) Ankle/Foot Plantar Flexion Active Range 50 of Motion (degrees) Ankle/Foot Eversion Active Range of 10 Motion (degrees) Ankle/Foot Inversion Active Range of 35 Motion (degrees) Ankle/Foot ROM Limitations Soft Tissue Tightness MMT Ankle Dorsiflexion Strength Grade 5 Normal Ankle Plantarflexion Strength Grade 4 Good Foot Eversion Strength Grade 4- Good- Foot Inversion Strength Grade 4- Good- Lower Extremity Functional Index Activities Today, do you or would you have any difficulty at all with: a.Any of your usual work, housework or A little bit of difficulty school activities b. Your usual hobbies, recreational or A little bit of difficulty sporting activities c. Getting into or out of the bath No difficulty d. Walking between rooms No difficulty e. Putting on your shoes or socks No difficulty f. Squatting A little bit of difficulty g. Lifting an object, like a bag of No difficulty groceries from the floor h. Performing light activities around No difficulty your home i. Performing heavy activities around A little bit of difficulty your home j. Getting into or out of a car No difficulty k. Walking 2 blocks A little bit of difficulty l. Walking a mile Moderate difficulty m. Going up or down 10 stairs (about 1 Moderate difficulty flight of stairs) n. Standing for 1 hour A little bit of difficulty o. Sitting for 1 hour No difficulty p. Running on even ground Moderate difficulty q. Running on uneven ground Moderate difficulty r. Making sharp turns while running fast Quite a bit of difficulty s. Hopping Quite a bit of difficulty t. Rolling over in bed No difficulty LEFI Score Lower Extremity Functional Index Score 60 Outpatient Therapy Assessment Impairments Problems/Impairmments Impaired Range of Motion, Impaired Strength,Impaired Gait Pattern,Impaired Walking, Impaired Recreational Activities,Impaired Running, Impaired Jumping,Impaired Work Activities Prognosis Rehab Potential Good Clinical Impression Consistent with Diagnosis Yes Consistent with ORIF Short Term Goals Number of Weeks 3 Increase Range of Motion Yes: Increase DF to 15 degrees Increase Strength Yes: Improve inversion/ eversion to 4/5 Improve Balance Yes: Hold SLS for 20 without UE support or LOB Patient to be Ind w/ HEP Yes Assistant Front End Manager Goals Number of Weeks 5 Increase Range of Motion Yes: WNL ankle AROM to maximize function. Increase Strength Yes: 5/5 MMT to maximize functional strength Improve Gait Pattern without Assistive Yes: No antalgic gait pattern. Device Improve Balance Yes: SLS BLE for 30 EA to improve functional balance. Patient to be Ind w/ Advanced HEP Yes Outpatient Therapy Plan of Care Treatment Plan May Include Therapeutic Exercise Including Home Yes Exercise Program Manual Therapy Techniques Yes Neuromuscular Re-education Yes Therapeutic Activities to Return to Yes Previous Functional/Work Level Gait Training Yes ADL/Self Care Education Yes Thermal Modalities Yes Electrical Stimulation Yes Ultrasound/Phonophoresis Yes Iontophoresis Yes Orthotics/Bracing/Splinting Yes Eval/Re-Eval Yes Frequency Times per week 1-2 times Duration Number of Weeks 4-5 Addendums This patient is a candidate for social No or vocational rehab? Patient/Guardian verbally acknowledges Yes understanding of treatment program and consents to further treatment? Patient/Guardian verbally acknowledges Yes understanding of diagnosis, prognosis and goals for treatment? Eval Complexity PT Charges 51620 - Moderate Complexity Shoulder/Elbow Eval Shoulder Objective Measurements Elbow Objective Measurements PHYSICIAN CERTIFICATION: I certify the specified therapy services for Francisco Arias II are required, authorized, and reviewed every 30 days.
== END 2024-05-20 09:00 | disposition home or self-care (01) ==
LOC: PT 07:58
PROVIDERS: Visit Provider Physician Assistant Surgical
DX: M25.571 Pain in right ankle and joints of right foot (principal); Z98.890 Other specified postprocedural states
CPT/HCPCS: 97163

== ENCOUNTER 2024-09-15 19:18 | Outpatient (CLI) | payer SELFPAY ==
[2024-09-15 19:39] LABS: Influenza A, PCR Not Detected (NotDetected); Influenza B, PCR Not Detected (NotDetected)
[2024-09-15 22:52] LABS: Coronavirus 19, PCR Detected (NotDetected)
== END 2024-09-15 23:59 | disposition home or self-care (01) ==
LOC: LAB.DROPOF 19:19
PROVIDERS: PCP Family Medicine; Visit Provider Family Medicine
DX: R50.9 Fever, unspecified (principal)
CPT/HCPCS: 87636

== ENCOUNTER 2024-10-10 18:53 | Emergency (ER) | payer SELFPAY ==
[2024-10-10 18:54] VITALS: BP 148/84; PULSE 88; RESP 18; TEMP 36.8; O2SAT 99; BMI 32.5
--- NOTE | 2024-10-10 19:31 | ED_ITS ---
Discharge Plan Disposition Patient Disposition: Home, Self-Care Prescriptions Prescriptions: New amoxicillin-pot clavulanate 875-125 mg tablet 1 tab PO BID Qty: 10 0RF No Action amoxicillin 500 mg capsule 500 mg PO BID 10 Days Qty: 20 0RF Referrals Follow up/Referrals: Azeem Braun APRN [Primary Care Provider] - See instructions Activity Restrictions/Add. Instructions Additional Instructions/Restrictions: At this time it was felt you are safe to be discharged home. If new or worsening symptoms please do not hesitate to return the emergency department. For pain please get Orajel [id number] and take Tylenol 1000 mg and ibuprofen 800 mg every 6 hours as needed, it is okay to take them at the same time with a little bit of food. Please follow-up with a dentist as soon as you are able. Please take your medications as prescribed. Clinical Impressions Clinical Impression: Pain, dental, Dental caries Print Language Print Language: Chinese Discharge ED Provider: Jay Cuba General Adult HPI General Chief complaint: Dental/Oral Stated complaint: Toothache Time Seen by Provider: 10/10/24 18:56 Mode of Arrival: Ambulatory Source of Information: Patient Limitations: No Limitations Description of Symptoms (Recalled from ER Triage Doc. by RN): PT REPORTS LEFT LOWER DENTAL PAIN STARTED ABOUT 1 HOUR AGO History of Present Illness HPI narrative: Patient is a 29-year-old male with no pertinent past medical history who presents emergency department for evaluation of dental pain. Onset was acute over the last hour, left-sided posterior mandibular pain. Patient has had his wisdom teeth taken out on the right however he thinks his wisdom tooth on the left is the culprit. No other acute complaints at this time. Related Data Previous Rx's ?Medication ?Instructions ?Recorded amoxicillin 500 mg capsule 500 mg PO BID 10 days #20 caps 09/15/24 amoxicillin 875 mg-potassium 1 tab PO BID dental caries #10 tabs 10/10/24 clavulanate 125 mg tablet Allergies Allergy/AdvReac Type Severity Reaction Status Date / Time azithromycin Allergy Intermediate Hives Verified 09/15/24 09:30 [facility] Disclaimer: The information contained in this section may have been updated after the patient was seen, as this information can be updated by other users. Medical History Fracture, fibula Family History Other Cancer Diabetes Family history of diabetes mellitus type II Heart attack Hypertension No significant family history Social History Smoking Status: Current some day smoker alcohol intake: never substance use type: marijuana current occupational status: employed Other Medical History Have you received the Flu Vaccine for this season: No Have you received the Pneumonia Vaccine: No ROS Obtained: Yes Systems reviewed as appropriate & no additional complaints except as documented Physical Exam General General appearance: alert and in no apparent distress Head Head exam: atraumatic and normocephalic Eye Eye exam: Present PERRL ENT ENT exam: Present mucous membranes moist and other (Multiple dental caries, specifically there is tender eroding caries in his left mandibular posterior molar. There is no periapical abscess, no elevation of the floor of the mouth, no woody edema, no uvular deviation or tonsillar swelling.) Neck Neck exam: Present normal inspection Chest Chest inspection: Present normal inspection and symmetric chest wall rise Respiratory Respiratory exam: Absent respiratory distress Cardiovascular Cardiovascular exam: Present regular rate and normal rhythm Abdominal Exam Abdominal exam: Present soft Extremities Exam Extremities exam: Present normal inspection Neurological Exam Neurological exam: Present alert Psychiatric Psychiatric exam: Present normal affect Skin Skin exam: Present warm and dry Medical Decision Making Medical Records Screening: Per USPSTF and CDC recommendations, given the prevalence of disease in our region, it is our hospital?s policy to screen for HIV and viral Hepatitis for all patients aged 18 and over and those with ongoing risk factors. Zhou Inquiry Pt receiving controlled substance: No Vital Signs: 10/10/24 18:54 Temperature 98.2 F Temperature Source Oral Pulse Rate [Radial] 88 Respiratory Rate 18 Blood Pressure [Left Arm] 148/84 H Blood Pressure Mean [Left Arm] 105 Blood Pressure Source [Left Arm] Automatic Cuff Blood Pressure Position [Left Arm] Sitting 02 Sat by Pulse Oximetry 99 Oxygen Delivery Method Room Air Orders (Tests/Meds): ED MEDICATIONS Discontinued Medications Generic Name Dose Route Start Last Admin Trade Name Freq PRN Reason Stop Dose Admin Acetaminophen 1,000 mg 10/10/24 19:28 Acetaminophen 500mg Tab PO 10/10/24 19:29 ONCE ONE Amoxicillin/Clavulanate Potassium 1 each 11/22/24 19:28 Amoxicillin/Clavulanate Potassium 875/125mg Tablet PO 10/10/24 19:29 ONCE ONE Ibuprofen 600 mg 10/10/24 19:28 Ibuprofen 600 Mg Tablet PO 10/10/24 19:29 ONCE ONE Lidocaine HCl 15 ml 10/10/24 19:28 Lidocaine 2% Viscous Geovanna 15ml Udc PO 10/10/24 19:29 ONCE ONE Oxycodone HCl 5 mg 10/10/24 19:28 Oxycodone 5mg Immediate Release Tablet PO 10/10/24 19:29 ONCE ONE Medical Decision Narrative: In summary patient is a 29-year-old male past medical history described above presents emergency department for evaluation of acute onset severe tooth pain. Clinically patient has an eroding dental carry into his posterior mandibular molar on the left. I have no concern for periapical abscess, no concern for peritonsillar abscess or Sae's angina based on history and physical exam, he has no trismus. Given this no imaging or hematologic labs are indicated. For his severe pain he will be given multimodal pain control. He will be given a single dose of Augmentin and discharged with 5 days of Augmentin for dental carry infection prophylaxis. He will follow-up with his dentist and was given return precautions. Critical Care Critical Care Time Critical Care Time: No
[2024-10-10] MEDS: AMOXICILLIN/CLAVULANATE POTASSIUM 875/125MG TABLET 1 EACH PO (19:47)
[2024-10-10] MEDS: ACETAMINOPHEN 500MG TAB 1000 MG PO (19:47)
[2024-10-10] MEDS: LIDOCAINE 2% VISCOUS SOL 15ML UDC 15 ML PO (19:47)
[2024-10-10] MEDS: OXYCODONE 5MG IMMEDIATE RELEASE TABLET 5 MG PO (19:48)
[2024-10-10] MEDS: IBUPROFEN 600 MG TABLET PO (19:48)
[2024-10-10 19:53] VITALS: BP 135/72; PULSE 84; RESP 18; TEMP 36.6; O2SAT 98
== END 2024-10-10 19:56 | disposition home or self-care (01) ==
PROVIDERS: Emergency Provider Emergency Medicine; PCP Nurse Practitioner Family
DX: K08.89 Other specified disorders of teeth and supporting structures (principal); K02.9 Dental caries, unspecified
CPT/HCPCS: 99283

== ENCOUNTER 2024-10-22 15:37 | Emergency (ER) | payer BC, SELFPAY ==
--- NOTE | 2024-10-22 15:44 | PC.NURSE ---
DR LEIGH AT BEDSIDE
[2024-10-22 15:49] VITALS: BP 145/94; PULSE 79; RESP 16; TEMP 36.8; O2SAT 98; BMI 33.9
--- NOTE | 2024-10-22 15:51 | HMH.EDGENADL ---
Discharge Plan Disposition Patient Disposition: Home, Self-Care Prescriptions Prescriptions: New amoxicillin-pot clavulanate 875-125 mg tablet 1 tab PO BID 10 Days Qty: 20 0RF chlorhexidine gluconate [Peridex] 0.12 % mouthwash 15 ml buccal BID Qty: 1893 2RF No Action amoxicillin 500 mg capsule 500 mg PO BID 10 Days Qty: 20 0RF amoxicillin-pot clavulanate 875-125 mg tablet 1 tab PO BID Qty: 10 0RF Referrals Follow up/Referrals: Azeem Braun APRN [Primary Care Provider] - See instructions Activity Restrictions/Add. Instructions Additional Instructions/Restrictions: Call your family doctor to establish care for this visit to the emergency department and schedule follow-up within 48 hours to ensure improvement. If you have any worsening of your condition or any other concerning signs or symptoms, return to the emergency department or your primary care doctor for further evaluation. Augmentin twice daily for 10 days. Peridex twice daily until following up Clinical Impressions Clinical Impression: Acute pulpitis Print Language Print Language: Libyan Discharge ED Provider: Felix Mcclure General Adult HPI General Chief complaint: Dental/Oral Stated complaint: dental pain Time Seen by Provider: 10/22/24 15:39 History of Present Illness HPI narrative: Please note that above description of symptoms, in this electronic medical record under categorization of recalled from ER triage doctor by RN are reflective of an initial nursing assessment, however, is not reflective of my full history and physical exam that was personally taken and clarified. Consequentially, this preceding description of symptoms, which may include the patient's categorized chief complaint in the EMR, do not reflect my personal clinical impression, and the ultimate description of history of present illness and patient stated complaints should be deferred to this section of the note. Unless stated otherwise or congruent with this section of the note, additional signs, symptoms, or incongruence should be interpreted as inaccurate with my clinical impression. Related Data Previous Rx's ?Medication ?Instructions ?Recorded amoxicillin 500 mg capsule 500 mg PO BID 10 days #20 caps 09/15/24 amoxicillin 875 mg-potassium 1 tab PO BID dental caries #10 tabs 10/10/24 clavulanate 125 mg tablet amoxicillin 875 mg-potassium 1 tab PO BID 10 days #20 tabs 10/22/24 clavulanate 125 mg tablet chlorhexidine gluconate 0.12 % 15 ml buccal BID #1,893 mL 10/22/24 mouthwash (Peridex) Allergies Allergy/AdvReac Type Severity Reaction Status Date / Time azithromycin Allergy Intermediate Hives Verified 10/22/24 15:55 [facility] Disclaimer: The information contained in this section may have been updated after the patient was seen, as this information can be updated by other users. Medical History Fracture, fibula Family History Other Cancer Diabetes Family history of diabetes mellitus type II Heart attack Hypertension No significant family history Social History (Updated 10/10/24 @ 19:35 by Jay Cuba MD) Smoking Status: Never smoker alcohol intake: never substance use type: marijuana current occupational status: employed Travel in the last 8 weeks: None Other Medical History Have you received the Flu Vaccine for this season: No Have you received the Pneumonia Vaccine: No ROS Obtained: Yes All systems reviewed & no additional complaints except as documented Physical Exam General General appearance: alert Head Head exam: atraumatic and normocephalic Eye Eye exam: Present normal appearance, PERRL and EOMI ENT ENT exam: Present other (Dental caries, broken tooth #17 with associated tenderness at the root with no periapical abscess. No evidence of tonsillitis, exudate, pharyngeal erythema, uvular deviation, palatal swelling, trismus, external neck swelling, submental induration, dental abscess, angioedema, or other abnormal beth p) Neck Neck exam: Present normal inspection, full ROM and trachea midline Respiratory Respiratory exam: Absent respiratory distress, wheezes, stridor, accessory muscle use or prolonged expiratory phase Cardiovascular Cardiovascular exam: Present other (Pulses equal symmetric in upper and lower extremities) Abdominal Exam Abdominal exam: Present soft; Absent distention, tenderness or pulsatile mass Extremities Exam Extremities exam: Absent edema Neurological Exam Neurological exam: Present alert, oriented X3 and CN II-XII intact; Absent motor sensory deficit Skin Skin exam: Present warm and dry; Absent diaphoresis or erythema Medical Decision Making Medical Records Medical records reviewed: Yes I reviewed the patient's medical records. Screening: Per USPSTF and CDC recommendations, given the prevalence of disease in our region, it is our hospital?s policy to screen for HIV and viral Hepatitis for all patients aged 18 and over and those with ongoing risk factors. Zhou Inquiry Pt receiving controlled substance: No Zhou was queried for this patient: No Vital Signs: 10/22/24 15:49 Temperature 98.2 F Temperature Source Oral Pulse Rate [Left] 79 Respiratory Rate 16 Blood Pressure [Right Arm] 145/94 H Blood Pressure Mean [Right Arm] 111 Blood Pressure Source [Right Arm] Automatic Cuff Blood Pressure Position [Right Arm] Sitting 02 Sat by Pulse Oximetry 98 Oxygen Delivery Method Room Air Orders (Tests/Meds): ED MEDICATIONS Discontinued Medications Generic Name Dose Route Start Last Admin Trade Name Freq PRN Reason Stop Dose Admin Amoxicillin/Clavulanate Potassium 1 each 10/22/24 15:49 Amoxicillin/Clavulanate Potassium 875/125mg Tablet PO 10/22/24 15:50 ONCE ONE Lidocaine HCl 15 ml 10/22/24 15:49 Lidocaine 2% Viscous Geovanna 15ml Udc PO 10/22/24 15:50 ONCE ONE Medical Decision Narrative: 29-year-old male with dental caries presenting with dental caries and jaw pain. This is been going on for a couple of days at this point. Called dentistry, able to get in to have an appointment for extraction on December 03, 2024. Now having pain, swelling, but no difficulty or pain with swallowing, difficulty breathing, range of motion of neck difficulties, voice changes, fevers, chills, vomiting, or any other concerns. Been taking Tylenol and Motrin for the pain that is sharp, aching, and does not radiate.. History was obtained via conversation with patient. On arrival, patient hemodynamically stable, alert, oriented x4, appropriate, GCS 15, moving all extremities spontaneously, pupils equal and reactive to light. Full physical exam performed and significant for 29-year-old male no acute distress. He is tender at the base of tooth 17 and the gingiva, broken tooth. No evidence of tonsillitis, exudate, pharyngeal erythema, uvular deviation, palatal swelling, trismus, external neck swelling, submental induration, dental abscess, angioedema, or other abnormal beth pharyngeal findings. Differential includes. Buccal abscess, chronic infection, among others. Patient placed on continuous cardiac monitoring and continuous pulse ox with initial blood pressure 145/94, heart rate 79, saturation 98% on room air. Patient was given Augmentin, dental balls for symptomatic management and correction of underlying abnormalities. Because patient well-appearing, no systemic signs or symptoms, clinical. Periapical abscess without any infection amenable to drainage, and otherwise has appropriate outpatient follow-up, deemed appropriate for outpatient management. Given patient presentation, workup, history, this most likely represents periapical abscess versus pulpitis. Because patient at baseline without signs or symptoms of clinical decompensation, deemed appropriate for discharge. Results were relayed to patient who voiced understanding and were agreeable to outpatient management and follow up. I discussed my clinical impression with patient and answered all questions. At this time, the evidence for any other entities in the differential is insufficient to warrant any further testing or ED observation. This was explained as well. Advisory was given that persistent or worsening symptoms require further evaluation. I confirmed the understanding of this discussion. [employer] disclaimer Much of this encounter note is an electronic pageant director spoken language to printed text. Electronic pageant director of the spoken language may permit errors. Although I have reviewed the note, some errors may still exist. Critical Care Critical Care Time Critical Care Time: No
[2024-10-22] MEDS: TETRACAINE/BENZOCAINE/BUTAMBEN 56 GM SPRAY TP (16:09)
[2024-10-22] MEDS: LIDOCAINE 2% VISCOUS SOL 15ML UDC 15 ML PO (16:09)
[2024-10-22] MEDS: AMOXICILLIN/CLAVULANATE POTASSIUM 875/125MG TABLET 1 EACH PO (16:09)
[2024-10-22 16:21] VITALS: BP 145/92; PULSE 64; RESP 16; TEMP 36.8
== END 2024-10-22 16:24 | disposition home or self-care (01) ==
PROVIDERS: Emergency Provider Emergency Medicine; PCP Nurse Practitioner Family
DX: K04.01 Reversible pulpitis (principal); K08.89 Other specified disorders of teeth and supporting structures
CPT/HCPCS: 99283

== ENCOUNTER 2024-11-06 19:10 | Emergency (ER) | payer SELFPAY ==
--- NOTE | 2024-11-06 19:30 | EXP.UTC ---
Discharge Plan Disposition Patient Disposition: Home, Self-Care Condition: Good Prescriptions Prescriptions: New ibuprofen [IBU] 800 mg tablet 800 mg PO Q8HP PRN (Reason: Moderate Pain) Qty: 30 0RF amoxicillin-pot clavulanate 875-125 mg Tablet 1 tab PO Q12H Qty: 20 0RF Referrals Follow up/Referrals: Azeem Braun APRN [Primary Care Provider] - See instructions Activity Restrictions/Add. Instructions Additional Instructions/Restrictions: Take the medications as directed. Follow up with your regular doctor. Follow up with your dentist as discussed. GO TO THE ER FOR ANY WORSENING SYMPTOMS Clinical Impressions Clinical Impression: Dental abscess, Pain, dental, Jaw pain Instructions Patient Instructions: Tooth Abscess, DI for Tooth Abscess, Ibuprofen, Amoxicillin and Clavulanic Acid Print Language Print Language: Hong Konger Discharge ED Provider: Elbert Urbina [facility] General Stated complaint: dental pain Time Seen by Provider: 11/06/24 19:30 Related Data Previous Rx's ?Medication ?Instructions ?Recorded amoxicillin 875 mg-potassium 1 tab PO Q12H #20 tabs 11/06/24 clavulanate 125 mg tablet ibuprofen 800 mg tablet (IBU) 800 mg PO Q8HP PRN Moderate Pain 11/06/24 #30 tabs Allergies Allergy/AdvReac Type Severity Reaction Status Date / Time azithromycin Allergy Intermediate Hives Verified 10/22/24 15:55 [facility] Disclaimer: The information contained in this section may have been updated after the patient was seen, as this information can be updated by other users. Medical History Fracture, fibula Family History Other Cancer Diabetes Family history of diabetes mellitus type II Heart attack Hypertension No significant family history Social History (Updated 10/10/24 @ 19:35 by Jay Cuba MD) Smoking Status: Never smoker alcohol intake: never substance use type: marijuana current occupational status: employed Travel in the last 8 weeks: None Have you lived/traveled outside [place] in past 30 days?: No Contact w/someone who lives/traveled outside [place] past 30 days?: No Exposure to someone with infectious disease in past 14 days?: No Do you have a fever (greater than 100.4 F or 38 C)?: No Have you tested positive for COVID-19: No Exposed to someone with COVID-19 in past 14 days?: No Do you have a sore throat?: No Do you have a cough?: No Do you have any weakness?: No Do you have any diarrhea?: No Are you experiencing any unusual bleeding?: No Do you have any muscle aches/pain?: No Do you have any abdominal pain?: No Are you experiencing loss of taste or smell?: No ROS Obtained: Yes All systems reviewed & no additional complaints except as documented Constitutional Constitutional: Denies chills and Denies fever(s) Eyes Eyes: Denies eye discharge ENT Ears, Nose, Mouth, and Throat: Reports as per HPI, Denies dizziness, Denies otalgia and Denies sore throat Cardiovascular Cardiovascular: Denies chest pain Respiratory Respiratory: Denies shortness of breath, Denies chest congestion, Denies cough, Denies stridor and Denies wheezing Gastrointestinal Gastrointestingal: Denies nausea or vomiting Musculoskeletal Musculoskeletal: Reports system reviewed and no additional complaints, except as documented and Denies arthralgias Integumentary/Breasts Skin/Breast: Denies rash Neurologic Neurologic: Denies dizziness and Denies paresthesias Allergic/Immunologic Allergic/Immunologic: Denies wheezing Physical Exam General General appearance: alert and in no apparent distress Head Head exam: atraumatic, normocephalic and normal inspection Eye Eye exam: Present normal appearance, PERRL and EOMI ENT ENT exam: Present mucous membranes moist, TM's normal bilaterally and normal external ear exam Expanded ENT Exam Nose exam: Absent sinus tenderness Nasal speculum exam: Bilateral: normal Mouth exam: Present normal external inspection; Absent drooling Teeth exam: Present dental caries, fractured tooth # and dental tenderness # Throat exam: Present normal inspection Neck Neck exam: Present normal inspection, full ROM and trachea midline; Absent meningismus or lymphadenopathy Chest Chest inspection: Present normal inspection and symmetric chest wall rise; Absent tenderness Respiratory Respiratory exam: Present normal lung sounds bilaterally; Absent respiratory distress Cardiovascular Cardiovascular exam: Present regular rate and normal rhythm; Absent JVD Abdominal Exam Abdominal exam: Present soft and normal bowel sounds; Absent distention, tenderness or guarding Extremities Exam Extremities exam: Present normal inspection, full ROM and normal capillary refill; Absent calf tenderness Back Exam Back exam: Present normal inspection; Absent tenderness Neurological Exam Neurological exam: Present alert and oriented X3 Psychiatric Psychiatric exam: Present normal affect and normal mood Skin Skin exam: Present warm, dry, intact and normal color Lymphatic Lymphatic Findings: no adenopathy Medical Decision Making Medical Records Medical records reviewed: No I reviewed the patient's medical records. Screening: Per USPSTF and CDC recommendations, given the prevalence of disease in our region, it is our hospital?s policy to screen for HIV and viral Hepatitis for all patients aged 18 and over and those with ongoing risk factors. Zhou Inquiry Pt receiving controlled substance: No
[2024-11-06 19:32] VITALS: BP 124/92; PULSE 97; RESP 18; TEMP 36.7; O2SAT 99; BMI 32.8
[2024-11-06] MEDS: AMOXICILLIN/CLAVULANATE POTASSIUM 875/125MG TABLET 1 EACH PO (20:08)
[2024-11-06 20:10] VITALS: BP 124/92; PULSE 97; RESP 18; TEMP 36.7
== END 2024-11-06 20:15 | disposition home or self-care (01) ==
PROVIDERS: Emergency Provider Nurse Practitioner Family; PCP Nurse Practitioner Family
DX: K04.7 Periapical abscess without sinus (principal)
CPT/HCPCS: 99213; G0381

== ENCOUNTER 2024-11-09 16:06 | Emergency (ER) | payer SELFPAY ==
[2024-11-09 16:07] VITALS: BP 144/94; PULSE 115; RESP 20; TEMP 37.1; O2SAT 99; BMI 32.5
--- NOTE | 2024-11-09 16:17 | HMH.EDGENADL ---
Discharge Plan Disposition Patient Disposition: Home, Self-Care Condition: Good Prescriptions Prescriptions: New pantoprazole [Protonix] 40 mg tablet,delayed release (DR/EC) 40 mg PO DAILY Qty: 30 0RF prednisone 20 mg tablet 60 mg PO BID 5 Days Qty: 30 0RF No Action ibuprofen [IBU] 800 mg tablet 800 mg PO Q8HP PRN (Reason: Moderate Pain) Qty: 30 0RF amoxicillin-pot clavulanate 875-125 mg Tablet 1 tab PO Q12H Qty: 20 0RF Referrals Follow up/Referrals: Azeem Braun APRN [Primary Care Provider] - See instructions Konrad Rico II, MD [Staff Physician] - See instructions (Chronic GERD) Clinical Impressions Clinical Impression: Colitis Instructions Patient Instructions: DI for Colitis Print Language Print Language: Cambodian Discharge ED Provider: Felix Mcclure General Adult HPI <HOME Driscoll - Last Filed: 11/09/24 20:06> General Chief complaint: Nausea/Vomiting/Diarrhea Stated complaint: blood in stool Time Seen by Provider: 11/09/24 16:17 Mode of Arrival: Ambulatory Source of Information: Patient Limitations: No Limitations Description of Symptoms (Recalled from ER Triage Doc. by RN): STOMACH PAIN,BLOOD IN STOOL History of Present Illness HPI narrative: AbdominalPatient presents for evaluation of nausea pain and bright red blood per rectum. Patient states that he has been having 3 or 4 days of crampy abdominal pain and began passing bright red blood per rectum today. Patient is on Augmentin that was prescribed Sunday for a dental infection. Patient denies fever chills hemoptysis hematemesis hematuria. Patient does have a family history of inflammatory bowel disease in his mother. Patient also states that he has had a longstanding history of GERD and has been self-medicating with Tums and milk for many years. Related Data Previous Rx's ?Medication ?Instructions ?Recorded amoxicillin 875 mg-potassium 1 tab PO Q12H #20 tabs 11/06/24 clavulanate 125 mg tablet ibuprofen 800 mg tablet (IBU) 800 mg PO Q8HP PRN Moderate Pain 11/06/24 #30 tabs pantoprazole 40 mg tablet,delayed 40 mg PO DAILY #30 tabs 11/09/24 release (Protonix) prednisone 20 mg tablet 60 mg (3 x 20 mg) PO BID 5 days 11/09/24 #30 tabs Allergies Allergy/AdvReac Type Severity Reaction Status Date / Time azithromycin Allergy Intermediate Hives Verified 10/22/24 15:55 PFS <HOME Driscoll - Last Filed: 11/09/24 20:06> [facility] Disclaimer: The information contained in this section may have been updated after the patient was seen, as this information can be updated by other users. Medical History Fracture, fibula Family History Other Cancer Diabetes Family history of diabetes mellitus type II Heart attack Hypertension No significant family history Social History (Updated 10/10/24 @ 19:35 by Jay Cuba MD) Smoking Status: Never smoker alcohol intake: never substance use type: marijuana current occupational status: employed Travel in the last 8 weeks: None Have you lived/traveled outside US in past 30 days?: No Contact w/someone who lives/traveled outside US past 30 days?: No Exposure to someone with infectious disease in past 14 days?: No Do you have a fever (greater than 100.4 F or 38 C)?: No Have you tested positive for COVID-19: No Exposed to someone with COVID-19 in past 14 days?: No Do you have a sore throat?: No Do you have a cough?: No Do you have any weakness?: No Do you have any diarrhea?: No Are you experiencing any unusual bleeding?: Yes Do you have any muscle aches/pain?: No Do you have any abdominal pain?: No Are you experiencing loss of taste or smell?: No Other Medical History Have you received the Flu Vaccine for this season: No Have you received the Pneumonia Vaccine: No <HOME Driscoll - Last Filed: 11/09/24 20:06> ROS Obtained: Yes Systems reviewed as appropriate & no additional complaints except as documented Physical Exam <HOME Driscoll - Last Filed: 11/09/24 20:06> General General appearance: alert and in no apparent distress Respiratory Respiratory exam: Present normal lung sounds bilaterally Cardiovascular Cardiovascular exam: Present regular rate Neurological Exam Neurological exam: Present alert and oriented X3 Medical Decision Making <HOME Driscoll Last Filed: 11/09/24 20:06> Medical Records Medical records reviewed: Yes I reviewed the patient's medical records. Screening: Per USPSTF and CDC recommendations, given the prevalence of disease in our region, it is our hospital?s policy to screen for HIV and viral Hepatitis for all patients aged 18 and over and those with ongoing risk factors. Zhou Inquiry Pt receiving controlled substance: No Vital Signs: 11/09/24 16:07 11/09/24 17:34 11/09/24 19:20 Temperature 98.7 F 97.6 F Temperature Source Oral Oral Pulse Rate 75 79 Pulse Rate [Right] 115 H Respiratory Rate 20 18 Blood Pressure 150/63 H 143/64 H Blood Pressure [Right Arm] 144/94 H Blood Pressure Mean [Right Arm] 110 Blood Pressure Source Automatic Cuff Blood Pressure Position Sitting 02 Sat by Pulse Oximetry 99 99 Oxygen Delivery Method Room Air Room Air Room Air Lab Data Lab results reviewed: Yes I reviewed the patient's lab results. Lab Results 11/09/24 16:40: WBC 11.4 H, RBC 5.57, Hgb 15.2, Hct 45.4, MCV 81.5, MCH 27.3, MCHC 33.5, RDW 13.4, Plt Count 359, MPV 9.3, Neut % (Auto) 74.7, Lymph % (Auto) 17.2, Placer % (Auto) 6.3, Eos % (Auto) 1.3, Baso % (Auto) 0.2, Neut # (Auto) 8.5 H, Lymph # (Auto) 2.0, Placer # (Auto) 0.7, Eos # (Auto) 0.2, Baso # (Auto) 0.0, ESR 8, PT 10.9, INR 0.97, Sodium 137, Potassium 3.7, Chloride 107, Carbon Dioxide 25, Anion Gap 8.7, BUN 10, Creatinine 1.00, Estimated Creat Clear 171, Estimated GFR 90, Est GFR ( Amer) 108, Glucose 114 H, Calcium 9.5, Total Bilirubin 0.6, AST 46, ALT 56, Alkaline Phosphatase 113, C-Reactive Protein 8.6 H, Total Protein 7.7, Albumin 4.5, Globulin 3.2, Albumin/Globulin Ratio 1.4, HIV Ag/Ab Combo Qual Negative 11/09/24 18:05: Stool Occult Blood Positive A 11/09/24 16:40 11/09/24 16:40 Orders (Tests/Meds): ED MEDICATIONS Discontinued Medications Generic Name Dose Route Start Last Admin Trade Name Alexq PRN Reason Stop Dose Admin Belladonna Alkaloids 60 ml 11/09/24 16:49 11/09/24 16:56 Belladonna Alkaloids 60 Ml Ml PO 11/09/24 16:50 60 ml ONCE ONE Administration Sodium Chloride 1,000 mls @ 999 mls/hr 11/09/24 16:49 11/09/24 16:56 Sod Chlor 0.9% 1000ml Bag IV 11/09/24 17:49 999 mls/hr .Q1H1M ONE Administration Iopamidol 75 ml 11/09/24 18:37 11/09/24 18:38 Iopamidol-370 (76%);100ml Bottle IV 11/09/24 18:38 75 ml ONCE ONE Administration Prednisone 60 mg 11/09/24 19:09 11/09/24 19:19 Prednisone 20mg Tab PO 11/09/24 19:10 60 mg ONCE ONE Administration Sodium Chloride 10 ml 11/09/24 18:37 11/09/24 18:38 Sodium Chloride 0.9% 10ml Syr (Rad Only) IV 11/09/24 18:38 10 ml ONCE ONE Administration ORDERS Category Date Time Status CT abdomen pelvis w con Stat Cat Scan 11/09/24 18:25 Taken CBC w/Auto Diff [Complete Blood Count Auto Diff] Stat Lab 11/09/24 16:40 Completed CMP [Comprehensive Metabolic Panel] Stat Lab 11/09/24 16:40 Completed CRP [C-Reactive Protein] Stat Lab 11/09/24 16:40 Completed ESR [Erythrocyte Sedimentation Rate] Stat Lab 11/09/24 16:40 Completed HIV Combo Stat Lab 11/09/24 16:40 Completed Hep C Ab with Reflex to RNA Stat Lab 11/09/24 16:40 Received INR [Prothrombin Time INR] Stat Lab 11/09/24 16:40 Completed Occult Blood,Stool Stat Lab 11/09/24 18:05 Completed Medical Decision Narrative: In summary patient is a 29-year-old male who presents to the emergency department for evaluation of abdominal pain and bright red blood per rectum. Patient is hemodynamically stable upon arrival, afebrile. Physical exam is remarkable for diffuse but right greater than left sided abdominal tenderness to palpation but no rebound or guarding or rigidity. Normal bowel sounds. Digital rectal exam reveals no visible external hemorrhoids and no palpable internal hemorrhoids.. Differential diagnosis includes colitis versus gastroenteritis from antibiotics versus diverticulitis etc. Initial workup will be conducted with hematologic labs stool for occult blood CT scan abdomen pelvis. Initial interventions include GI cocktail Tylenol crystalloid bolus. Initial workup reviewed by me shows his hematologic labs are nonactionable stool for occult blood was positive and my informal interpretation of CT scan abdomen pelvis shows ascending colitis suggestive of inflammatory condition.. Upon repeat evaluation patient did report some improvement after GI cocktail however his abdominal cramping remains. Given this patient is appropriate for discharge with prescription for steroids with first dose given here, a prescription for PPI and referral to gastroenterology for bidirectional scope. Patient given strict return precautions. <Felix Mcclure MD - Last Filed: 11/09/24 20:27> Vital Signs: 11/09/24 16:07 11/09/24 17:34 11/09/24 19:20 Temperature 98.7 F 97.6 F Temperature Source Oral Oral Pulse Rate 75 79 Pulse Rate [Right] 115 H Respiratory Rate 20 18 Blood Pressure 150/63 H 143/64 H Blood Pressure [Right Arm] 144/94 H Blood Pressure Mean [Right Arm] 110 Blood Pressure Source Automatic Cuff Blood Pressure Position Sitting 02 Sat by Pulse Oximetry 99 99 Oxygen Delivery Method Room Air Room Air Room Air Lab Data Lab Results 11/09/24 16:40: WBC 11.4 H, RBC 5.57, Hgb 15.2, Hct 45.4, MCV 81.5, MCH 27.3, MCHC 33.5, RDW 13.4, Plt Count 359, MPV 9.3, Neut % (Auto) 74.7, Lymph % (Auto) 17.2, Placer % (Auto) 6.3, Eos % (Auto) 1.3, Baso % (Auto) 0.2, Neut # (Auto) 8.5 H, Lymph # (Auto) 2.0, Placer # (Auto) 0.7, Eos # (Auto) 0.2, Baso # (Auto) 0.0, ESR 8, PT 10.9, INR 0.97, Sodium 137, Potassium 3.7, Chloride 107, Carbon Dioxide 25, Anion Gap 8.7, BUN 10, Creatinine 1.00, Estimated Creat Clear 171, Estimated GFR 90, Est GFR ( Amer) 108, Glucose 114 H, Calcium 9.5, Total Bilirubin 0.6, AST 46, ALT 56, Alkaline Phosphatase 113, C-Reactive Protein 8.6 H, Total Protein 7.7, Albumin 4.5, Globulin 3.2, Albumin/Globulin Ratio 1.4, HIV Ag/Ab Combo Qual Negative 11/09/24 18:05: Stool Occult Blood Positive A Orders (Tests/Meds): ED MEDICATIONS Discontinued Medications Generic Name Dose Route Start Last Admin Trade Name Freq PRN Reason Stop Dose Admin Belladonna Alkaloids 60 ml 11/09/24 16:49 11/09/24 16:56 Belladonna Alkaloids 60 Ml Ml PO 11/09/24 16:50 60 ml ONCE ONE Administration Sodium Chloride 1,000 mls @ 999 mls/hr 11/09/24 16:49 11/09/24 16:56 Sod Chlor 0.9% 1000ml Bag IV 11/09/24 17:49 999 mls/hr .Q1H1M ONE Administration Iopamidol 75 ml 11/09/24 18:37 11/09/24 18:38 Iopamidol-370 (76%);100ml Bottle IV 11/09/24 18:38 75 ml ONCE ONE Administration Prednisone 60 mg 11/09/24 19:09 11/09/24 19:19 Prednisone 20mg Tab PO 11/09/24 19:10 60 mg ONCE ONE Administration Sodium Chloride 10 ml 11/09/24 18:37 11/09/24 18:38 Sodium Chloride 0.9% 10ml Syr (Rad Only) IV 11/09/24 18:38 10 ml ONCE ONE Administration ORDERS Category Date Time Status CT abdomen pelvis w con Stat Cat Scan 11/09/24 18:25 Taken CBC w/Auto Diff [Complete Blood Count Auto Diff] Stat Lab 11/09/24 16:40 Completed CMP [Comprehensive Metabolic Panel] Stat Lab 11/09/24 16:40 Completed CRP [C-Reactive Protein] Stat Lab 11/09/24 16:40 Completed ESR [Erythrocyte Sedimentation Rate] Stat Lab 11/09/24 16:40 Completed HIV Combo Stat Lab 11/09/24 16:40 Completed Hep C Ab with Reflex to RNA Stat Lab 11/09/24 16:40 Received INR [Prothrombin Time INR] Stat Lab 11/09/24 16:40 Completed Occult Blood,Stool Stat Lab 11/09/24 18:05 Completed Medical Decision Narrative: In summary patient is a 29-year-old male who presents to the emergency department for evaluation of abdominal pain and bright red blood per rectum. Patient is hemodynamically stable upon arrival, afebrile. Physical exam is remarkable for diffuse but right greater than left sided abdominal tenderness to palpation but no rebound or guarding or rigidity. Normal bowel sounds. Digital rectal exam reveals no visible external hemorrhoids and no palpable internal hemorrhoids.. Differential diagnosis includes colitis versus gastroenteritis from antibiotics versus diverticulitis etc. Initial workup will be conducted with hematologic labs stool for occult blood CT scan abdomen pelvis. Initial interventions include GI cocktail Tylenol crystalloid bolus. Initial workup reviewed by me shows his hematologic labs are nonactionable stool for occult blood was positive and my informal interpretation of CT scan abdomen pelvis shows ascending colitis suggestive of inflammatory condition.. Upon repeat evaluation patient did report some improvement after GI cocktail however his abdominal cramping remains. Given this patient is appropriate for discharge with prescription for steroids with first dose given here, a prescription for PPI and referral to gastroenterology for bidirectional scope. Patient given strict return precautions. I was consulted by the KAMARI, and we discussed the complexity of the problems being addressed. I approved the treatment and management plan for this patient's care in the Emergency Department, thus performing a substantive portion of the medical decision making. Felix Mcclure MD Critical Care <HOME Driscoll - Last Filed: 11/09/24 20:06> Critical Care Time Critical Care Time: No
[2024-11-09] MEDS: 0.9 % SODIUM CHLORIDE 1000ML 1,000 ML 999 ML IV (16:56)
[2024-11-09] MEDS: BELLADONNA ALKALOIDS 60 ML ML PO (16:56)
[2024-11-09 17:01] LABS: Albumin Level 4.5 g/dl (3.5-5.0); Chloride 107 mmol/L (98-107); Potassium 3.7 mmoL/L (3.5-5.1); Sodium 137 mmol/L (136-145)
[2024-11-09 17:02] LABS: INR 0.97 (0.9-1.1); Prothrombin Time 10.9 seconds (10.1-12.5)
[2024-11-09 17:03] LABS: Blood Urea Nitrogen 10 mg/dl (9-20); Creatinine Clearance Estimated 171 mL/min (50-200); Estimated Glomerular Filt Rate 90 ml/min (>60); GFR (African American) 108 ML/MIN (>60)
[2024-11-09 17:04] LABS: Alanine Aminotransferase 56 U/L (12-78); Albumin/Globulin Ratio 1.4 (1.1-1.8); Alkaline Phosphatase 113 U/L (38-126); Anion Gap 8.7 mEq/L (5-15); Aspartate Amino Transferase 46 U/L (17-59); Bilirubin,Total 0.6 mg/dl (0.2-1.3); Calcium 9.5 mg/dl (8.4-10.2); Carbon Dioxide 25 mmol/L (22.0-30.0); Globulin 3.2 g/dL (1.3-3.2); Glucose 114 mg/dl (74-100); Total Protein,Serum 7.7 g/dl (6.3-8.2)
[2024-11-09 17:29] LABS: Basophils % 0.2 % (0.1-2.0); Eosinophils % 1.3 % (0.1-12.0); Hematocrit 45.4 % (42.0-52.0); Hemoglobin 15.2 g/dL (14.1-18.0); Lymphocytes % 17.2 % (10-50); Mean Corpuscular HGB Conc 33.5 g/dL (31.8-35.4); Mean Corpuscular Hemoglobin 27.3 pg (27.0-31.2); Mean Corpuscular Volume 81.5 fl (80-94); Mean Platelet Volume 9.3 fl (7.4-10.4); Monocytes % 6.3 % (1.7-9.3); Neutrophils % 74.7 % (37.0-80.0); Platelet Count 359 K/mm3 (142-424); Red Blood Count 5.57 M/mm3 (4.60-6.20); Red Cell Distribution Width 13.4 % (11.5-17.5); White Blood Count 11.4 K/mm3 (4.8-10.8)
[2024-11-09 17:30] LABS: Eosinophils # 0.2 K/mm3 (0.0-0.4); Monocytes # 0.7 K/mm3 (0.1-1.0); Neutrophils # 8.5 K/mm3 (1.8-7.8)
[2024-11-09 17:34] VITALS: BP 150/63; PULSE 75; O2SAT 99
--- NOTE | 2024-11-09 17:36 | PC.NURSE ---
Rounds just completed.
[2024-11-09 18:07] LABS: HIV Combo NEGATIVE (Negative)
[2024-11-09 18:18] LABS: Occult Blood,Stool Positive (Negative)
--- NOTE | 2024-11-09 18:25 | CT_ITS ---
PROCEDURE INFORMATION: Exam: CT Abdomen And Pelvis With Contrast Exam date and time: 11/09/2024 6:37 PM Age: 29 years old Clinical indication: Other: Abd pain, brbpr TECHNIQUE: Imaging protocol: Computed tomography of the abdomen and pelvis with contrast. Radiation optimization: All CT scans at this facility use at least one of these dose optimization techniques: automated exposure control; mA and/or kV adjustment per patient size (includes targeted exams where dose is matched to clinical indication); or iterative reconstruction. Contrast material: ISOVUE; Contrast volume: 75 ml; Contrast route: IV; COMPARISON: No relevant prior studies available. FINDINGS: Lungs: Lung bases are clear. Liver: Fatty liver changes with associated hepatomegaly measuring 17.4 cm. Liver otherwise unremarkable. Gallbladder and biliary ducts: Normal. No calcified stones. No ductal dilation. Pancreas: Normal. No ductal dilation. Spleen: Normal. No splenomegaly. Adrenal glands: Normal. No mass. Kidneys and ureters: Normal. No hydronephrosis. Stomach and bowel: [id number]-yz-ugilby thickening of the proximal colon from the cecum through the hepatic flexure with [id number] thickening of the more distal colon from the hepatic flexure through the proximal descending colon. GI tract structures otherwise unremarkable with no other evident wall thickening allowing for incomplete distention. Appendix: Appendix is normal. No evidence of appendicitis. Intraperitoneal space: Unremarkable. No free air. No significant fluid collection. Vasculature: Unremarkable. No abdominal aortic aneurysm. Lymph nodes: Unremarkable. No enlarged lymph nodes. Urinary bladder: Unremarkable as visualized. Reproductive: Unremarkable as visualized. Bones/joints: Unremarkable. No acute fracture. Soft tissues: Unremarkable. IMPRESSION: Colonic wall thickening compatible with colitis most pronounced in the cecum and ascending colon. This colitis may be inflammatory or infectious. No other acute abnormalities.
[2024-11-09] MEDS: SODIUM CHLORIDE 0.9% 10ML SYR (RAD ONLY) 10 ML IV (18:38)
[2024-11-09] MEDS: IOPAMIDOL-370 (76%);100ML BOTTLE 75 ML IV (18:38)
[2024-11-09] MEDS: predniSONE 20MG TAB 60 MG PO (19:19)
[2024-11-09 19:20] VITALS: BP 143/64; PULSE 79; RESP 18; TEMP 36.4; O2SAT 97
[2024-11-09 19:24] LABS: C-Reactive Protein 8.6 mg/L (0-4)
[2024-11-09 19:55] LABS: Erythrocyte Sedimentation Rate 8 mm/hr (0-15)
[2024-11-11 05:08] LABS: HCV Ab Non Reactive (Non Reactive)
== END 2024-11-09 19:25 | disposition home or self-care (01) ==
PROVIDERS: Physician Assistant; Emergency Provider Emergency Medicine; PCP Nurse Practitioner Family
DX: K52.9 Noninfective gastroenteritis and colitis, unspecified (principal); K92.1 Melena; R10.9 Unspecified abdominal pain
CPT/HCPCS: 74177; 80053; 82272; 85025; 85610; 85651; 86140; 86803; 87389; 96360; 99285; G0328; J7030; Q9967

== ENCOUNTER 2025-04-02 20:58 | Emergency (ER) | payer BC, SELFPAY ==
[2025-04-02 21:10] VITALS: BP 156/75; PULSE 72; RESP 18; TEMP 36.6; O2SAT 99; BMI 33.9
--- NOTE | 2025-04-02 21:58 | PC.NURSE ---
Pt to triage room for assessment by Chinmay BHAT
--- NOTE | 2025-04-02 22:02 | ED_ITS ---
<Statement entered by Farida Lobo DO - 04/03/25 00:51> I was consulted by the KAMARI, and we discussed the complexity of the problems being addressed. I approved the treatment and management plan for this patient's care in the emergency department, thus performing a substantive portion of the medical decision making. Farida Lobo DO Discharge Plan Disposition Patient Disposition: Home, Self-Care Prescriptions Prescriptions: New amoxicillin-pot clavulanate 875-125 mg tablet 1 tab PO BID 7 Days Qty: 14 0RF No Action pantoprazole [Protonix] 40 mg tablet,delayed release (DR/EC) 40 mg PO DAILY Qty: 30 0RF prednisone 20 mg tablet 60 mg PO BID 5 Days Qty: 30 0RF ibuprofen [IBU] 800 mg tablet 800 mg PO Q8HP PRN (Reason: Moderate Pain) Qty: 30 0RF amoxicillin-pot clavulanate 875-125 mg Tablet 1 tab PO Q12H Qty: 20 0RF Referrals Follow up/Referrals: Azeem Braun APRN [Primary Care Provider] - See instructions Activity Restrictions/Add. Instructions Additional Instructions/Restrictions: Please take Augmentin antibiotic twice daily for 7 days with food, please follow-up with dental provider, please return to the emergency department any worsening signs or symptoms, I recommend ibuprofen Tylenol as needed for symptomatic relief. Clinical Impressions Clinical Impression: Pain due to dental caries Instructions Patient Instructions: DI for Dental Pain, DI for Tooth Decay Print Language Print Language: Slovak Discharge ED Provider: Farida Lobo General Adult HPI General Chief complaint: Dental/Oral Stated complaint: left bottem tooth pain Time Seen by Provider: 04/02/25 22:01 Mode of Arrival: Ambulatory Source of Information: Patient Description of Symptoms (Recalled from ER Triage Doc. by RN): Pt presents for evaluation of left sided dental pain and facial swelling x 1 day History of Present Illness HPI narrative: 29-year male presents emergency department with left-sided facial pain and swelling, located to the dental space, patient does have significant past medical history consistent with numerous dental caries and dental pain, patient states he has a dentist slated follow-up, the pain started today after the patient got off work , located in the back left molar, he denies any significant facial swelling no headache no lightheadedness no fever chills no chest pain or shortness breath no nausea vomiting constipation diarrhea no abdominal pain, no urinary type symptomatology, patient has other past medical history consistent with GERD, he is occasionally utilizes marijuana, denies any tobacco or drug use, initial triage vitals gross unremarkable. Of note patient did take some ibuprofen p.o. prior to arrival to the hospital. Onset (ago): hour(s) Related Data Previous Rx's ?Medication ?Instructions ?Recorded amoxicillin 875 mg-potassium 1 tab PO Q12H #20 tabs 11/06/24 clavulanate 125 mg tablet ibuprofen 800 mg tablet (IBU) 800 mg PO Q8HP PRN Moderate Pain 11/06/24 #30 tabs pantoprazole 40 mg tablet,delayed 40 mg PO DAILY #30 tabs 11/09/24 release (Protonix) prednisone 20 mg tablet 60 mg (3 x 20 mg) PO BID 5 days 11/09/24 #30 tabs amoxicillin 875 mg-potassium 1 tab PO BID 7 days #14 tabs 04/02/25 clavulanate 125 mg tablet Allergies Allergy/AdvReac Type Severity Reaction Status Date / Time azithromycin Allergy Intermediate Hives Verified 10/22/24 15:55 [facility] Disclaimer: The information contained in this section may have been updated after the patient was seen, as this information can be updated by other users. Medical History Fracture, fibula Family History Other Cancer Diabetes Family history of diabetes mellitus type II Heart attack Hypertension No significant family history Social History (Updated 10/10/24 @ 19:35 by Jay Cuba MD) Smoking Status: Never smoker alcohol intake: never substance use type: marijuana current occupational status: employed Travel in the last 8 weeks?: None Have you lived/traveled outside US in past 30 days?: No Contact w/someone who lives/traveled outside US past 30 days?: No Exposure to someone with infectious disease in past 14 days?: No Do you have a fever (greater than 100.4 F or 38 C)?: No Have you tested positive for COVID-19?: No Exposed to someone with COVID-19 in past 14 days?: No Do you have a sore throat?: No Do you have a cough?: No Do you have any weakness?: No Do you have any diarrhea?: No Are you experiencing any unusual bleeding?: No Do you have any muscle aches/pain?: No Do you have any abdominal pain?: No Are you experiencing loss of taste or smell?: No Other Medical History Have you received the Flu Vaccine for this season: No Have you received the Pneumonia Vaccine: No ROS Obtained: Yes All systems reviewed & no additional complaints except as documented Physical Exam General General appearance: alert and in no apparent distress Head Head exam: atraumatic and normocephalic Eye Eye exam: Present PERRL and EOMI ENT ENT exam: Present mucous membranes moist and other (Obvious dental erosion/dental caries on the left third molar, no obvious periapical periodontal abscess would be amicable for drainage at this time, uvula is midline, no erythema, no tonsillar exudates, no oropharyngeal edema) Neck Neck exam: Present normal inspection Chest Chest inspection: Present normal inspection and symmetric chest wall rise Respiratory Respiratory exam: Present normal lung sounds bilaterally; Absent respiratory distress Cardiovascular Cardiovascular exam: Present regular rate and normal rhythm Abdominal Exam Abdominal exam: Present soft; Absent tenderness Extremities Exam Extremities exam: Present normal inspection Neurological Exam Neurological exam: Present alert and oriented X3 Psychiatric Psychiatric exam: Present normal affect Skin Skin exam: Present warm and dry Medical Decision Making Medical Records Medical records reviewed: Yes I reviewed the patient's medical records. Screening: Per USPSTF and CDC recommendations, given the prevalence of disease in our region, it is our hospital?s policy to screen for HIV and viral Hepatitis for all patients aged 18 and over and those with ongoing risk factors. Zhou Inquiry Pt receiving controlled substance: No Zhou was queried for this patient: No Vital Signs: 04/02/25 21:10 Temperature 97.8 F Temperature Source Oral Pulse Rate [Right] 72 Respiratory Rate 18 Blood Pressure [Right Arm] 156/75 H Blood Pressure Mean [Right Arm] 102 Blood Pressure Source [Right Arm] Automatic Cuff Blood Pressure Position [Right Arm] Sitting 02 Sat by Pulse Oximetry 99 Oxygen Delivery Method Room Air Orders (Tests/Meds): ED MEDICATIONS Generic Name Dose Route Start Last Admin Trade Name Freq PRN Reason Stop Dose Admin Lidocaine HCl 15 ml 04/02/25 22:02 Lidocaine 2% Viscous Geovanna 15ml Udc PO 04/02/25 22:03 ONCE ONE Medical Decision Narrative: 29-year-old male presents emerged part with left-sided dental pain that started today, differential diagnosis could but limited to, peridental abscess, periap ical abscess, dental caries, colitis among others. After thorough examination of the patient's dental space, no obvious peritonsillar periapical abscess to be amicable to drainage, dental carry prese nt numerous about multiple teeth, most notable in the left third molar, will give patient tooth ball, 1000 g of p.o. Tylenol, and Augmentin 875 mg p.o. today for 7 days, strict ED return precautions were given, patient voiced understanding of the current treatment plan/discharge plan, patient to follow-up with dental provider as directed. Patient voiced understanding. Critical Care Critical Care Time Critical Care Time: No
[2025-04-02] MEDS: ACETAMINOPHEN 500MG TAB 1000 MG PO (22:10)
[2025-04-02] MEDS: LIDOCAINE 2% VISCOUS SOL 15ML UDC 15 ML PO (22:10)
[2025-04-02 22:20] VITALS: BP 106/67; PULSE 80; RESP 18; TEMP 36.6; O2SAT 99
== END 2025-04-02 22:22 | disposition home or self-care (01) ==
PROVIDERS: Emergency Provider Emergency Medicine; PCP Nurse Practitioner Family
DX: R22.0 Localized swelling, mass and lump, head (principal)
CPT/HCPCS: 99283